=== PATIENT | female | born 1945 | race Caucasian/White ===

== ENCOUNTER 2020-02-17 16:15 | Outpatient (CLI) | payer MEDICARE, SELFPAY ==
--- NOTE | 2020-02-17 | USCV_ITS ---
Deedee Centeno Age: 74 Gender: F : 1945 Exam Date: 02/17/2020 16:40 Ordering Phys: Ray Maria DO Technologist: Dayna White [place] [facility] [place]ication: ATRIAL FIB BP: / HR: 60 Rhythm: Technical Quality: Adequate MEASUREMENTS (Male / Female) Normal Values 2D ECHO LV Diastolic Diameter PLAX 3.8 cm 4.2 - 5.9 / 3.9 - 5.3 cm LV Systolic Diameter PLAX 2.4 cm LV Chamber Size 3.7 cm IVS Diastolic Thickness 0.9 cm 0.6 - 1.0 / 0.6 - 0.9 cm IVS Systolic Thickness 1.4 cm LVPW Diastolic Thickness 1.2 cm 0.6 - 1.0 / 0.6 - 0.9 cm LVPW Systolic Thickness 1.5 cm RV Chamber Size 2.1 cm LVOT Diameter 2.1 cm LV Ejection Fraction 2D Teich 68.5 % LV Ejection Fraction MOD 2C 64.0 % LV Ejection Fraction 2C AL 63.4 % LA Diameter 4.4 cm LA Width 3.4 cm LA Height 5.5 cm RA Width 3.7 cm RA Height 3.9 cm Aorta at Sinotubular Diameter 3.1 cm M-MODE LV Diastolic Diameter MM 5.3 cm 4.2 - 5.9 / 3.9 - 5.3 cm LV Systolic Diameter MM 2.8 cm LV Ejection Fraction MM Teich 78.5 % IVS Diastolic Thickness MM 1.1 cm 0.6 - 1.0 / 0.6 - 0.9 cm IVS Systolic Thickness MM 1.7 cm LVPW Diastolic Thickness MM 0.7 cm 0.6 - 1.0 / 0.6 - 0.9 cm LVPW Systolic Thickness MM 1.7 cm RV Diastolic Diameter MM 1.8 cm Aortic Annulus Diameter 2.5 cm LA Ao Ratio MM 1.8 MV E Point Septal Separation 0.4 cm DOPPLER AV Peak Velocity 135.0 cm/s LVOT Peak Velocity 94.0 cm/s AV Area Cont Eq vti 2.1 cm squared AV Area Cont Eq pk 2.4 cm squared MV Area PHT 5.1 cm squared Mitral E to A Ratio 1.8 MV E' Velocity 14.0 cm/s Mitral E to MV E' Ratio 6.3 Mitral E to LV E' Lateral Ratio 5.6 Mitral E to LV E' Septal Ratio 7.1 TR Peak Velocity 305.6 cm/s TR Peak Gradient 37.4 mmHg TR Mean Velocity 228.7 cm/s TR Mean Gradient 23.9 mmHg TR Velocity Time Integral 86.7 cm TV Peak E Velocity 53.0 cm/s Right Atrial Pressure 3.0 mmHg Pulmonary Artery Systolic Pressu 40.4 mmHg PV Peak Velocity 68.0 cm/s RV Acceleration Time 0.1 s RV Ejection Time 0.3 s RV AcT/ET 0.4 FINDINGS Left Ventricle Normal left ventricular size, systolic function and wall thickness, with no regional wall motion abnormalities. Left ventricular ejection fraction is estimated at 65 %. Normal diastolic function. Right Ventricle Normal right ventricular size and systolic function. Right ventricular systolic pressure 40.4 mmHg. Right Atrium Normal right atrial size. Left Atrium Moderately increased left atrial size. Mitral Valve Structurally normal mitral valve. No mitral valve stenosis. Mild mitral valve regurgitation. Aortic Valve Aortic valve not well visualized. No aortic valve stenosis. No aortic valve regurgitation. Tricuspid Valve Structurally normal tricuspid valve. Trace tricuspid valve regurgitation. Pulmonic Valve Pulmonic valve not well visualized. Pericardium No pericardial effusion. Aorta Normal size aortic root and proximal ascending aorta. CONCLUSIONS 1. Normal left ventricular size, systolic function and wall thickness, with no regional wall motion abnormalities. Left ventricular ejection fraction is estimated at 65 %. Normal diastolic function. 2. Normal right ventricular size and systolic function. 3. Moderately increased left atrial size. 4. Mild mitral valve regurgitation. 5. Pulmonary artery pressure estimated at 40 mm Hg. 6. When compared to previous study dated 03/10/2018, there may not have been any significant change. Mae Latif MD (Electronically Signed) Final Date: 18 February 2020 14:14 S
== END 2020-02-17 16:16 | disposition home or self-care (01) ==
LOC: RAD 16:31
PROVIDERS: PCP Internal Medicine; Visit Provider Internal Medicine
DX: I48.20 Chronic atrial fibrillation, unspecified (principal); I51.7 Cardiomegaly; I34.0 Nonrheumatic mitral (valve) insufficiency
CPT/HCPCS: 93306

== ENCOUNTER 2020-07-10 15:21 | Outpatient (CLI) | payer MEDICARE, SELFPAY ==
--- NOTE | 2020-07-10 15:28 | MM_ITS ---
WS: [id number] BILATERAL SCREENING DIGITAL MAMMOGRAM WITH CAD HISTORY: SCREENING COMPARISON: 09/01/2017 Bilateral CC and MLO views submitted. Computer aided detection analyzed. Breast composition: There are scattered areas of fibroglandular density. No suspicious masses, microc alcifications or architectural distortion. Bilateral breast arterial calcifications and scattered karen ign calcifications. Biopsy clip in the anterior RIGHT breast. MM/[id number] IMPRESSION: BI-RADS: 2-Benign FOLLOW UP: 1 Year Follow-up
--- NOTE | 2020-07-10 16:04 | XR_ITS ---
WS: [id number] SCREENING DEXA SCAN [employer] CLINICAL INFORMATION: POSTMENOPAUSAL ESTROGEN DEFICIENCY COMPARISON: None. FINDINGS: The L1-L4 bone mineral density measures 1.086 g/cm2. This corresponds to a T score score of -0.8 and Z score of 0.1. Left femoral neck bone mineral density measures 1.024 g/cm2. This corresponds to a T score of 0.1 and Z score of 1.2. Right femoral neck bone mineral density measures 1.016 g/cm2. This corresponds to a T score 0.1of and Z score of 1.1. Mean femoral neck bone mineral density measures 1.020 g/cm2. This corresponds to a T score of 0.1 and Z score of 1.1. XR/XR DEXA axial skeleton* [id number] IMPRESSION: Normal bone mineralization. Patient's FRAX calculated 10 year probability for major osteoporotic fracture i s 8.6 % and osteoporotic hip fracture is 1.0%.
== END 2020-07-10 15:22 | disposition home or self-care (01) ==
LOC: RADSHAW 15:26
PROVIDERS: PCP Internal Medicine; Visit Provider Nurse Practitioner Family
DX: Z12.31 Encounter for screening mammogram for malignant neoplasm of breast (principal); Z78.0 Asymptomatic menopausal state
CPT/HCPCS: 77067; 77080

== ENCOUNTER 2020-07-31 05:39 | Observation (INO) | payer MEDICARE, SELFPAY ==
[2020-07-31] VITALS (21 sets, daily range): BP systolic 96–144; BP diastolic 53–107; PULSE 52–91; RESP 14–21; TEMP 35.8–36.6; O2SAT 94–99; BMI 32.1
--- NOTE | 2020-07-31 05:42 | ECG_ITS ---
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 [id number] f
--- NOTE | 2020-07-31 05:42 | XR_ITS ---
WS: [id number] Exam: XR chest 1V portable [id number] Date/Time of Exam: 07/31/2020 6:15 AM Reason For Exam: cp Comparison 01/17/2020. Findings: The lungs are clear and fully expanded. Costophrenic angles are sharp. No infiltrates. Bronchovascula r relief appears normal. Cardiac silhouette is unremarkable. Bony elements are intact. XR/XR chest 1V portable [id number] IMPRESSION: Unremarkable chest radiograph.
[2020-07-31 06:17] LABS: Basophils # 0.1 10^3/uL (0.0-0.1); Basophils % 0.4 %; Eosinophils # 0.4 10^3/uL (0.0-0.8); Eosinophils % 3.3 %; Hematocrit 41.1 % (37.0-47.0); Hemoglobin 13.5 g/dL (11.5-15.3); Lymphocytes # 3.4 10^3/uL (0.8-4.8); Lymphocytes % 27.8 %; Mean Corpuscular HGB Conc 32.8 g/dL (30.0-36.0); Mean Corpuscular Hemoglobin 31.4 pg (28.0-34.0); Mean Corpuscular Volume 95.6 fL (81-99); Mean Platelet Volume 10.5 fL (7.4-10.4); Monocytes # 0.9 10^3/uL (0.2-0.9); Monocytes % 7.1 %; Neutrophils # 7.56 10^3/uL (1.8-7.7); Nucleated Red Blood Cells % 0 %; Platelet Count 338 10^3/cmm (130-400); Red Cell Distribution Width 15.2 % (12.1-15.1); White Blood Count 12.4 10^3/uL (4.0-10.0)
--- NOTE | 2020-07-31 06:21 | W.ED.CHESTPA ---
HPI - Chest Pain General: Chief Complaint: Chest Pain Stated Complaint: CP Time Seen by Provider: 07/31/20 06:08 History of Present Illness: HPI narrative: 74-year-old female presents via EMS complaining of chest pain that woke her up from sleep this morning. She relates the pain was 6 of 10 initially is now decreased to 2/10. She has had this in the past and has seen Dr. Harris. She is currently on apixaban for atrial fibrillation which he previously had an ablation. She states she did had a stress test and an angiogram in the past although the initial review of the records I did not see those may have the look in the old [employer]. This morning she had shortness of breath and headache with this but she denies any nausea or vomiting. She is not diabetic she is not hypertensive. She is a non-smoker. Reviewing the chart in the old [employer] there was a normal angiogram in August [id number]. However at that time left ventriculogram showed 45% ejection fraction with some wall motion abnormalities the comment in the angiogram report that this was inconsistent with her other findings which essentially showed no coronary artery disease. In February of this year she had an echocardiogram which showed a normal ejection fraction. Sestamibi stress test done prior to the angiogram showed areas of reversible ischemia in the distribution of the left circumflex flex artery and showed a normal left ventricular ejection fraction. Patient was found in A. fib with RVR and given IV Cardizem by EMS prior to arrival. On arrival here she is in normal sinus rhythm MD complaint: chest pain and chest discomfort Pertinent past history: prior [place] and other (Atrial fibrillation) Onset (ago): hour(s) Timing of current episode: episodic Prior episodes: Yes Onset: during rest Pain location: substernal Pain radiation: none Pain scale (0-10): 6 Quality: tightness and heaviness Relieving factors: rest Exacerbating factors: nothing Associated symptoms: Deny abdominal pain, diaphoresis, dyspnea, fever(s), leg edema, nausea, palpitations, sense of impending doom, syncope or vomiting Treatment prior to arrival: none Review of Systems Const: Denies: fever(s) or diaphoresis ENMT: Denies: throat pain, ear or mastoid pain, nasal discharge or nasal congestion Card: Denies: palpitations or syncope Resp: Denies: dyspnea, productive cough or non-productive cough GI: Denies: abdominal pain, nausea or vomiting : Denies: flank pain, difficulty voiding, dysuria, urinary frequency or urinary urgency Skin/Breast: Denies: rash or pruritus PFSH ED PFSH: Medical History Anxiety disorder Atrial fibrillation Atypical chest pain The EKG from 11/23/2019 showed sinus rhythm with short GA interval. Some nonspecific T wave changes. Low QRS voltage in the precordial leads. Cardiomyopathy GERD (gastroesophageal reflux disease) Hypertension Radiculopathy Surgical History H/O breast biopsy H/O: hysterectomy History of ear surgery Hx of cholecystectomy Family History Other Stroke Social History Smoking and tobacco status: former smoker Alcohol intake: never Physical Exam Const: COMMON NORMALS: no acute distress GENERAL APPEARANCE: cooperative and comfortable ORIENTATION/CONSCIOUSNESS: Yes awake, Yes oriented to person, Yes oriented to place and Yes oriented to time HENMT: COMMON NORMALS: normocephalic, atraumatic and hearing grossly normal bilaterally HEAD & SCALP: normocephalic and atraumatic Neck/C-Spine: COMMON NORMALS: no JVD Resp: COMMON NORMALS: normal respiratory effort, No retractions, No use of accessory muscles and clear to auscultation bilaterally AUSCULTATION: clear to auscultation bilaterally Cardio: COMMON NORMALS: no JVD, regular rate, regular rhythm and No murmurs present (Cardio) RATE: regular rate RHYTHM: regular rhythm GI: COMMON NORMALS: Soft to palpation and No hepatosplenomegaly present AUSCULTATION: Yes normoactive bowel sounds PALPATION: Yes Soft to palpation, No Tenderness to palpation present (GI), No Guarding due to palpation present (GI) and Yes No hepatosplenomegaly present Extremity: COMMON NORMALS: normal to inspection, capillary refill normal, no clubbing, cyanosis or edema, no calf tenderness and no pedal edema Neuro: SENSORIUM/ORIENTATION: Yes oriented to person, Yes oriented to place and Yes oriented to time Skin: COMMON NORMALS: no rashes or lesions noted GENERAL SKIN EXAM: no rashes or lesions noted Course Vital Signs: Vital signs: Vital Signs Temperature 97.8 F 07/31/20 16:29 Pulse Rate 58 L 07/31/20 16:29 Respiratory Rate 17 07/31/20 16:29 Blood Pressure 144/67 07/31/20 16:29 Pulse Oximetry 94 07/31/20 16:29 MDM - Chest Pain MDM Narrative: Medical decision making narrative: Patient to be admitted. Discussed with hospitalist orders have been written Lab Data: Labs: Lab Results 07/31/20 07/31/20 07/31/20 Range/Units 05:54 05:54 05:54 WBC 12.4 H (4.0-10.0) 10^3/ uL RBC 4.30 (4.1-5.3) 10^6/u L Hgb 13.5 (11.5-15.3) g/dL Hct 41.1 (37.0-47.0) % MCV 95.6 (81-99) fL MCH 31.4 (28.0-34.0) pg MCHC 32.8 (30.0-36.0) g/dL RDW 15.2 H (12.1-15.1) % Plt Count 338 (130-400) 10^3/c mm MPV 10.5 H (7.4-10.4) fL Neut % (Auto) 61.0 % Lymph % (Auto) 27.8 % [place] % (Auto) 7.1 % Eos % (Auto) 3.3 % Baso % (Auto) 0.4 % Neut # (Auto) 7.56 (1.8-7.7) 10^3/u L Lymph # (Auto) 3.4 (0.8-4.8) 10^3/u L [place] # (Auto) 0.9 (0.2-0.9) 10^3/u L Eos # (Auto) 0.4 (0.0-0.8) 10^3/u L Baso # (Auto) 0.1 (0.0-0.1) 10^3/u L Nucleated RBC % (a uto) 0 % Nucleated RBCs # 0.0 /100WBC Sodium 136 (136-145) mmol/L Potassium 3.9 (3.5-5.1) mmol/L Chloride 101 (98-107) mmol/L Carbon Dioxide 24 (22-29) mmol/L Anion Gap 14.9 (5-19) BUN 19 (8-23) mg/dL Creatinine 1.2 H (0.5-0.9) mg/dL GFR Calculation Not Reportable Glucose 100 (65-115) mg/dL Calculated Osmolal ity 284 L (285-295) mOsm/k g Calcium 9.1 (8.5-10.5) mg/dL Magnesium (1.7-2.3) mg/dL Total Bilirubin 0.2 (0.15-1.2) mg/dL AST 16 (0-32) U/L ALT 15 (0-33) U/L Alkaline Phosphata se 115 H (35-105) IU/L Troponin T Baselin e 14 H (0-10) ng/L Troponin T 120 [place] (0-10) ng/L Delta Troponin T (0-10) ABS# NT-Pro-B Natriuret Pep 191 H (0-125) pg/mL Total Protein 6.9 (6.6-8.7) g/dL Albumin 4.0 (3.5-5.2) g/dL Globulin 2.9 (1.3-4.6) g/dL TSH (0.27-4.20) uIU/ mL Urine Color (Yellow) Urine Appearance (CLEAR) Urine pH (5-7) Ur Specific Gravit y (1.005-1.030) Urine Protein (Negative) Urine Glucose (UA) (Normal) Urine Ketones (Negative) Urine Blood (Negative) Urine Nitrate (Negative) Urine Bilirubin (Negative) Urine Urobilinogen (Negative) mg/dL Ur Leukocyte Kathrin ase (Negative) Urine RBC (0-2) /hpf Urine WBC (0-5) /hpf Ur Squamous Epith Cells (0-5) /hpf Amorphous Sediment Urine Bacteria (NONE) /hpf 07/31/20 07/31/20 07/31/20 Range/Units 05:54 06:00 07:45 WBC (4.0-10.0) 10^3/ uL RBC (4.1-5.3) 10^6/u L Hgb (11.5-15.3) g/dL Hct (37.0-47.0) % MCV (81-99) fL MCH (28.0-34.0) pg MCHC (30.0-36.0) g/dL RDW (12.1-15.1) % Plt Count (130-400) 10^3/c mm MPV (7.4-10.4) fL Neut % (Auto) % Lymph % (Auto) % [place] % (Auto) % Eos % (Auto) % Baso % (Auto) % Neut # (Auto) (1.8-7.7) 10^3/u L Lymph # (Auto) (0.8-4.8) 10^3/u L [place] # (Auto) (0.2-0.9) 10^3/u L Eos # (Auto) (0.0-0.8) 10^3/u L Baso # (Auto) (0.0-0.1) 10^3/u L Nucleated RBC % (a uto) % Nucleated RBCs # /100WBC Sodium (136-145) mmol/L Potassium (3.5-5.1) mmol/L Chloride (98-107) mmol/L Carbon Dioxide (22-29) mmol/L Anion Gap (5-19) BUN (8-23) mg/dL Creatinine (0.5-0.9) mg/dL GFR Calculation Glucose (65-115) mg/dL Calculated Osmolal ity (285-295) mOsm/k g Calcium (8.5-10.5) mg/dL Magnesium 2.1 (1.7-2.3) mg/dL Total Bilirubin (0.15-1.2) mg/dL AST (0-32) U/L ALT (0-33) U/L Alkaline Phosphata se (35-105) IU/L Troponin T Baselin e (0-10) ng/L Troponin T 120 [place] 22.68 H (0-10) ng/L Delta Troponin T 8.68 (0-10) ABS# NT-Pro-B Natriuret Pep (0-125) pg/mL Total Protein (6.6-8.7) g/dL Albumin (3.5-5.2) g/dL Globulin (1.3-4.6) g/dL TSH 5.79 H (0.27-4.20) uIU/ mL Urine Color Straw (Yellow) Urine Appearance Clear (CLEAR) Urine pH 8 H (5-7) Ur Specific Gravit y 1.005 (1.005-1.030) Urine Protein Neg (Negative) Urine Glucose (UA) Norm (Normal) Urine Ketones Negative (Negative) Urine Blood 2+ H (Negative) Urine Nitrate Negative (Negative) Urine Bilirubin Neg (Negative) Urine Urobilinogen Norm (Negative) mg/dL Ur Leukocyte Kathrin ase Negative (Negative) Urine RBC 0-4 H (0-2) /hpf Urine WBC 0-4 H (0-5) /hpf Ur Squamous Epith Cells 0-4 H (0-5) /hpf Amorphous Sediment Not Reportable Urine Bacteria Trace (NONE) /hpf Discharge Plan Discharge Patient Disposition: Placed in Observation Admit Provider: Gato Prado Clinical Impression: Atrial fibrillation, Cardiomyopathy, Hypertension, Elevated troponin Discharge Diet: Cardiac Discharge Activity: Increase activity as tolerated Coding Level of Care Code ED Janitor Supervisor for [facility] Fwd Exam Comprehensive
[2020-07-31 06:37] LABS: Troponin(5th) Baseline 14 ng/L (0-10)
[2020-07-31 06:47] LABS: Alanine Aminotransferase 15 U/L (0-33); Alkaline Phosphatase 115 IU/L (35-105); Anion Gap 14.9 (5-19); Aspartate Amino Transferase 16 U/L (0-32); Blood Urea Nitrogen 19 mg/dL (8-23); Calcium 9.1 mg/dL (8.5-10.5); Carbon Dioxide 24 mmol/L (22-29); Chloride 101 mmol/L (98-107); Globulin 2.9 g/dL (1.3-4.6); Glucose 100 mg/dL (65-115); NT Pro B Type Natriuretic Pept 191 pg/mL (0-125); Osmolality Calculated 284 mOsm/kg (285-295); Potassium 3.9 mmol/L (3.5-5.1); Sodium 136 mmol/L (136-145); Total Bilirubin 0.2 mg/dL (0.15-1.2); Total Protein 6.9 g/dL (6.6-8.7)
[2020-07-31 07:01] LABS: Blood Urine 2+ (Negative); Glucose Urine UA Norm (Normal); Ketones Urine Negative (Negative); Protein Urine Neg (Negative); Specific Gravity, Urine 1.005 (1.005-1.030); Urine Appearance Clear (CLEAR); Urine Color Straw (Yellow); pH Urine 8 (5-7)
[2020-07-31 07:02] LABS: Add Urine Microscopic? YES; Bilirubin Urine Neg (Negative); Leukocyte Esterase Urine Negative (Negative); Nitrate Urine Negative (Negative); Urobilinogen Urine Norm (Negative)
[2020-07-31 07:03] LABS: Bacteria Urine TRACE /hpf; RBC Urine 0-4 /hpf (0-2); Squamous Epithelial Cell Urine 0-4 /hpf (0-5); WBC Urine 0-4 /hpf (0-5)
--- NOTE | 2020-07-31 07:08 | PC.NURSE ---
Report received from Deshawn Cabrera RN. Introduced self to pt and son. Dr Hendricks in room at time. Assisted pt to use BSC. Pt placed back in bed, call light in reach, no needs at this time. Pt states her pain at this time is a very tiny bit .
--- NOTE | 2020-07-31 07:42 | ECG_ITS ---
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 [id number] f
--- NOTE | 2020-07-31 07:47 | PC.NURSE ---
2hr EKG done and 2hr troponin drawn at bedside. Pt denies needs at this time, call light in reach. Pt son at bedside.
[2020-07-31 08:14] LABS: Troponin 5 2HR 22.68 ng/L (0-10); Troponin 5 2HR Delta 8.68 ABS# (0-10)
--- NOTE | 2020-07-31 08:16 | PC.NURSE ---
Rounded on pt. Pt denies pain at this time. Pt and son updated on wait for lab results, denies needs. Call light in reach.
[2020-07-31] MEDS: enoxaparin 100 mg/mL Syringe 90 MG SUBCUT (09:36)
--- NOTE | 2020-07-31 10:09 | PM.HP ---
Providers/Chief Complaint Primary Care Provider: Ray Maria DO Chief Complaint: CP History of Present Illness Deedee Centeno is a 74 year old female who presents by EMS. She reports she had chest pain starting at 4 AM, waking her up from sleep. She reports it was a horrible ache in the chest, with some radiation to her jaw. No nausea, vomiting, or shortness of breath. She reports it is gone now. She reports a history of ablation, about a year ago that did not work. She states afterwards she had to go back on propafenone. After restarting the medicine she has not had any events. When ambulance services picked her up today, she was in atrial fibrillation with rapid ventricular rate at a heart rate of around 150. She received Cardizem. She is in sinus rhythm in the emergency department. She denies any history of Covid, or exposure to Covid. She has no pain when she takes a deep breath. Review of Systems General: Reports: 10 or more systems reviewed and unremarkable except in HPI and below Const: Denies: fever(s) Eyes: Denies: change in vision ENMT: Denies: throat pain Card: Reports: chest pain and palpitations Resp: Denies: dyspnea GI: Denies: abdominal pain : Denies: flank pain Musc: Denies: neck pain Skin/Breast: Denies: rash Neuro: Denies: headache(s) Psych: Denies: anxiety Endo: Denies: polyuria Rodolfo/Lymph: Denies: easy bruising All/Imm: Denies: urticaria Medications/Allergies Home Medications Medication Instructions Recorded Confirmed Last Taken Type albuterol sulfate 90 mcg/actuation 2 puff INHALATION Q6H PRN 11/23/19 07/31/20 Unknown History aerosol inhaler furosemide 40 mg tablet 40 mg PO DAILY tab 03/22/20 07/31/20 07/30/20 History potassium chloride 10 mEq 10 meq PO DAILY tab 03/22/20 07/31/20 07/30/20 History tablet,extended release tizanidine 4 mg tablet 6 mg PO TID PRN tab 03/22/20 07/31/20 Unknown History propafenone 150 mg tablet 300 mg PO Q8H #180 tab 05/17/20 07/31/20 07/30/20 Rx aspirin 325 mg PO DAILY 07/31/20 07/31/2020 History Allergies Allergy/AdvReac Type Severity Reaction Status Date / Time iodine Allergy Unknown unknown Verified 03/22/20 10:10 morphine Allergy Unknown unknown Verified 03/22/20 10:10 rosuvastatin [From Crestor] Allergy Unknown Unknown Verified 03/22/20 10:10 shrimp Allergy Unknown unknown Verified 03/22/20 10:10 PFSH Acute PFSH: Medical History Anxiety disorder Atrial fibrillation Atypical chest pain The EKG from 11/23/2019 showed sinus rhythm with short IN interval. Some nonspecific T wave changes. Low QRS voltage in the precordial leads. Cardiomyopathy GERD (gastroesophageal reflux disease) Hypertension Radiculopathy Surgical History H/O breast biopsy H/O: hysterectomy History of ear surgery Hx of cholecystectomy Family History Other Stroke Social History Smoking and tobacco status: former smoker Alcohol intake: never Vitals/I&O/Wt Last Vital Signs Temp 97.8 F 07/31/20 05:43 Pulse 55 L 07/31/20 09:34 Resp 16 07/31/20 09:34 BP 102/53 07/31/20 09:34 Pulse Ox 95 07/31/20 09:34 Weight last 48 hrs Weight 92.986 kg Data : 07/31/20 05:54 07/31/20 05:54 Other data: Last echocardiogram February 2020 demonstrates an EF of 65%, mild MR Magnesium and TSH have been ordered Urinalysis negative BNP 190 Troponin XIV with repeat of 22 at 120 minutes EKG demonstrated sinus bradycardia, normal axis, no acute changes. Chest x-ray no infiltrate Angiogram August demonstrated 30% eccentric stenosis LAD otherwise not any significant concerns. A&P Assessment and plan (1) Atrial fibrillation: Atrial fibrillation with rapid ventricular rate when picked up by EMS. She received Cardizem and converted to sinus rhythm. She currently remains in sinus rhythm, bradycardic. She is on propafenone 300 mg 3 times daily We will start anticoagulation. She had stopped this secondary to cost. Will discuss with discharge planning what insurance may cover better. Cardiology consult regarding arrhythmia, options in this patient Status: Acute Qualifiers: Atrial fibrillation type: other persistent Qualified Code(s): I48.19 - Other persistent atrial fibrillation (2) Atypical chest pain: Appears to be secondary to atrial fibrillation with rapid ventricular rate. Angiogram 2016 demonstrated only 30% lesion LAD and the rest of the vessels minor disease. Continue aspirin She has reported allergy to statins. Status: Acute (3) Elevated troponin: Secondary to atrial fibrillation with rapid ventricular rate Status: Acute Additional A&P Information Full code Lovenox will suffice for DVT prophylaxis Attestations Medical Necessity Statement*: Will need less than 2 midnight stay for evaluation and treatment of atrial fibrillation with rapid ventricular rate. 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
[2020-07-31 10:50] LABS: Magnesium 2.1 mg/dL (1.7-2.3); Thyroid Stimulating Hormone 5.79 uIU/mL (0.27-4.20)
--- NOTE | 2020-07-31 10:59 | PM.CONSULT ---
Providers/Reason For Consult Consulting Physican/Specialty*: Dr. Latif, Cardiology Reason for Consult*: Paroxysmal atrial fibrillation with RVR, elevated troponin Requesting Physcian: Dr. Prado Primary Care Provider: Ray Maria DO History of Present Illness History of Present Illness Deedee Centeno is a 74 year old female was in her usual state of health until around 4 this morning. She woke up with chest discomfort and measured her blood pressure. Her blood pressure was high and her heart rate was irregular so she called her son who called the ambulance and she presented to the hospital. On her way to the ambulance EKG was done which showed what looks like possible atrial flutter with rapid ventricular response with 2 is to 1 conduction. She was given Cardizem 20 mg IV with religious of normal sinus rhythm. On arrival to the ER her EKG has shown sinus bradycardia, low QRS voltage in precordial leads with nonspecific T wave abnormality. Her symptoms of chest discomfort and palpitations have since resolved. She denies having any fever chills URI or UTI-like symptoms prior to this episode. She stopped taking her Eliquis because of the wharton around 29 June. Review of Systems Const: Denies: fever(s), chills, change in appetite, change in weight, fatigue or malaise Eyes: Denies: change in vision or eye discharge ENMT: Denies: throat pain, swelling of lips/tongue, oral sores, bleeding gums, nasal congestion, epistaxis or post nasal drip Card: Denies: chest pain, palpitations, irregular heart rhythm, edema, lightheadedness, syncope, dyspnea on exertion, orthopnea or leg pain with exertion Resp: Denies: dyspnea, productive cough, wheezing or hemoptysis GI: Denies: abdominal pain, nausea, vomiting, hematemesis, heartburn, diarrhea, constipation, change in bowel habits, hematochezia or melena : Denies: difficulty voiding, dysuria, oliguria, hematuria or sexual dysfunction Musc: Denies: back pain, extremity swelling, joint pain or muscle weakness Skin/Breast: Denies: rash, erythema, new lesions or change in hair Neuro: Denies: numbness in extremities, weakness in extremities, lack of coordination, difficulty walking, dizziness, vertigo or confusion Psych: Denies: anxiety, depression, irritability, suicidal ideation or homicidal ideation Endo: Denies: tired all the time, cold intolerance or heat intolerance Rodolfo/Lymph: Denies: easy bruising, easy bleeding, petechiae or purpura All/Imm: Denies: throat swelling, tongue swelling or acute wheezing Meds/Allergies Home Medications and Allergies Home Medications Medication Instructions Recorded Confirmed Last Taken Type albuterol sulfate 90 mcg/actuation 2 puff INHALATION Q6H PRN 11/23/19 07/31/20 Unknown History aerosol inhaler furosemide 40 mg tablet 40 mg PO DAILY tab 03/22/20 07/31/20 07/30/20 History potassium chloride 10 mEq 10 meq PO DAILY tab 03/22/20 07/31/20 07/30/20 History tablet,extended release tizanidine 4 mg tablet 6 mg PO TID PRN tab 03/22/20 07/31/20 Unknown History propafenone 150 mg tablet 300 mg PO Q8H #180 tab 05/17/20 07/31/20 07/30/20 Rx aspirin 325 mg PO DAILY 07/31/20 07/31/20 07/30/20 History Allergies Allergy/AdvReac Type Severity Reaction Status Date / Time iodine Allergy Unknown unknown Verified 03/22/20 10:10 morphine Allergy Unknown unknown Verified 03/22/20 10:10 rosuvastatin [From Crestor] Allergy Unknown Unknown Verified 03/22/20 10:10 shrimp Allergy Unknown unknown Verified 03/22/20 10:10 PFSH Acute PFSH: Medical History Anxiety disorder Atrial fibrillation Atypical chest pain The EKG from 11/23/2019 showed sinus rhythm with short MI interval. Some nonspecific T wave changes. Low QRS voltage in the precordial leads. Cardiomyopathy GERD (gastroesophageal reflux disease) Hypertension Radiculopathy Surgical History H/O breast biopsy H/O: hysterectomy History of ear surgery Hx of cholecystectomy Family History Other Stroke Social History Smoking and tobacco status: former smoker Alcohol intake: never Vitals/I&O/Wt Last Vital Signs Temp 97.8 F 07/31/20 05:43 Pulse 57 L 07/31/20 10:55 Resp 17 07/31/20 10:55 BP 113/68 07/31/20 10:55 Pulse Ox 96 07/31/20 10:55 Weight last 48 hrs Weight 205 lb Physical Exam Const: COMMON NORMALS: no acute distress, patient oriented x3 and alert GENERAL APPEARANCE: cooperative, comfortable, well kempt and well hydrated HENMT: COMMON NORMALS: normocephalic, atraumatic, hearing grossly normal bilaterally and Normal external nose present HEAD & SCALP: normocephalic and atraumatic NOSE: Normal external nose present and No nasal discharge present MOUTH: lip normal and tongue normal; no drooling and no malodorous breath TEETH & GINGIVA: no caries Eye: COMMON NORMALS: Equal, round and reactive pupils present, EOMs intact bilaterally, conjunctivae normal and no scleral icterus GENERAL EYE: appearance normal, both eyes and all related structures ALIGNMENT: Yes alignment normal PERIORBITAL: periorbital findings normal EYELID: eyelids normal CONJUNCTIVA: Yes conjunctivae normal SCLERA: sclerae normal PUPIL: Yes Equal, round and reactive pupils present Neck/C-Spine: COMMON NORMALS: no lymphadenopathy, supple and no JVD GENERAL: Yes normal visual inspection, Yes trachea midline and No Mass present (neck) CAROTIDS: Yes normal carotid upstroke CERVICAL SPINE: Yes cervical ROM normal Lymph: LYMPHATIC: no lymphadenopathy noted Chest: COMMONS NORMALS: normal inspection of the chest and normal palpation of entire chest wall CHEST: Yes Symmetrical chest wall rise, No mass, No tenderness, No Surgical scars present (Chest) and No rash BREAST/AXILLA INSPECTION: Yes normal inspection of the axillae Resp: COMMON NORMALS: clear to auscultation bilaterally AUSCULTATION: clear to auscultation bilaterally, no crackles, no rales, no rhonchi, no wheezes and vesicular breath sounds Cardio: COMMON NORMALS: no JVD, regular rate, regular rhythm, S1 normal heart sound present, S2 normal heart sound present and Peripheral pulses 2+ throughout PALPATION: normal PMI RATE: regular rate RHYTHM: regular rhythm HEART SOUNDS: S1 normal heart sound present, S2 normal heart sound present, no gallops and no murmurs BRUITS: no carotid bruits PERIPHERAL PULSES: Peripheral pulses 2+ throughout, radial pulses present, posterior tibial pulses present and dorsalis pedis present GI: COMMON NORMALS: Soft to palpation AUSCULTATION: Yes normoactive bowel sounds PALPATION: Yes Soft to palpation, No Tenderness to palpation present (GI), No Guarding due to palpation present (GI), No Rigid due to palpation, No Pulsatile mass present and No Ascites present Extremity: GENERAL: No calf tenderness, No clubbing, No cyanosis, Yes edema and No pallor Neuro: COMMON NORMALS: patient oriented x3, CN's II-XII intact bilaterally and no focal motor deficits SENSORIUM/ORIENTATION: Yes alert Psych: COMMON NORMALS: Normal thought process present and speech normal APPEARANCE: Yes well kempt SPEECH: Yes normal speech MOOD & AFFECT: Yes euthymic mood THOUGHT PROCESS: Normal thought process present THOUGHT CONTENT: Yes Normal thought content present Skin: HAIR: normal NAILS: normal and no clubbing A&P Assessment and plan (1) Atrial fibrillation: Paroxysmal atrial fibrillation/flutter with RVR -S/p atrial fibrillation ablation in March [address] Cross at [facility]. It seems like after that she had stopped taking her propafenone and Eliquis which has since been restarted. The recurrence of atrial fibrillation was in June and this is her first episode requiring ER visit since then. -The option of changing propafenone to a different antiarrhythmic versus adding metoprolol tartrate 25 mg as needed for HR >100 bpm was discussed. -Patient would like to continue propafenone 300 mg 3 times a day (maximum dose). Restart DOAC. -We may have to wharton other DOAC's with case management. -Follow up with Dr Harris in 2-3 weeks in office. Status: Acute Qualifiers: Atrial fibrillation type: other persistent Qualified Code(s): I48.19 - Other persistent atrial fibrillation (2) Atypical chest pain: likely in setting of atrial flutter with RVR. Status: Acute (3) Elevated troponin: Baseline troponin T of 814 which increased to 23 and 6 hr troponin T of 21. -In setting of atrial flutter with rapid ventricle response Status: Acute (4) Hypertension: Status: Acute Qualifiers: Hypertension type: essential hypertension Qualified Code(s): I10 - Essential (primary) hypertension Coding Level of Care Code Acute Onboarding Specialist for [facility] Fwd Exam Comprehensive Diagnoses Atrial fibrillation I48.19 Atrial fibrillation type: other persistent Atypical chest pain R07.89 Elevated troponin R77.8 Hypertension I10 Hypertension type: essential hypertension
[2020-07-31] MEDS: propafenone 150 mg Tablet PO (11:20)
[2020-07-31] MEDS: aspirin 325 mg Tablet PO (11:20)
--- NOTE | 2020-07-31 11:42 | ECG_ITS ---
[facility] Test Date: 2020-07-31 Pat Name: Deedee Centeno Department: Room: 102 Gender: Female Imaging Technician: : 1945 Requested By: William Kwok Order Number: [id number] Cheryl MD: Maria L Harris M.D. Measurements Intervals [place] Rate: 53 P: 54 [place]: 157 QRS: 7 QRSD: 88 T: 48 QT: 446 QTc: 420 Interpretive Statements SINUS BRADYCARDIA LOW QRS VOLTAGE IN PRECORDIAL LEADS [QRS DEFLECTION < 1.0 mV IN CHEST LEADS] NONSPECIFIC T-WAVE ABNORMALITY Compared to ECG 07/31/2020 07:48:49 T-wave abnormality now present Electronically Signed On 07-31-2020 18:35:15 INSPECTOR ADV[employer]ED COMPOSITE by Maria L Harris M.D. [id number]
[2020-07-31] MEDS: lanolin oint 7 gm 1 APPLIC TOPICAL (11:52)
[2020-07-31 12:26] LABS: Troponin 5 6HR 20.82 ng/L (0-10); Troponin 5 6HR Delta 6.82 ng/L (0-12)
--- NOTE | 2020-07-31 15:56 | P.DS_ITS ---
Discharge Providers Date of Admission: 07/31/20 09:30 Date of Discharge: July 31, 2020 Attending Provider at Admission: Gato Prado MD Attending Provider at Discharge: Gato Prado MD Primary Care Provider: Ray Maria DO Diagnoses at Discharge Discharge Diagnosis (1) Atrial fibrillation: Status: Acute Qualifiers: Atrial fibrillation type: other persistent Qualified Code(s): I48.19 - Other persistent atrial fibrillation (2) Atypical chest pain: Status: Acute Permanent problem details: The EKG from 11/23/2019 showed sinus rhythm with short MO interval. Some nonspecific T wave changes. Low QRS voltage in the precordial leads. (3) Elevated troponin: Status: Acute (4) Hypertension: Status: Acute Qualifiers: Hypertension type: essential hypertension Qualified Code(s): I10 - Essential (primary) hypertension Reason for Visit Reason for Visit: CP Hospital Course Hospital Course Deedee is a 74-year-old white female who presented through the emergency department with complaints of chest pain and palpitations occurring in the morning. EMS noted a heart rate of 150s, atrial fibrillation/flutter. They gave her 20 mg of Cardizem IV. She converted to sinus rhythm and remained in mild sinus bradycardia throughout her hospital stay. She denied any chest pain when I evaluated her in the emergency department. She has a long history of atrial fibrillation, not responding to ablation. She is currently maintained on propafenone. I placed her in the hospital under an observation status. Cardiology visited the patient and she did not want any current changes to her regimen of propafenone. Patient will follow up with her primary care precision instrument and tool maker Dr. Harris. Metoprolol 25 mg was added to take on a as needed basis should patient go into atrial fibrillation and have a heart rate of over 110. She had also recently stopped her Eliquis. We attempted to see what was better financially but all of the medication had significant cost through her insurance. It was therefore filled through our 340 B plan with hopes that it could be continued through the same program. Mild troponin elevation, was secondary to her tachycardia. Third troponin was already decreasing. Physical Exam Narrative: EXAM NARRATIVE: See exam from earlier today Discharge Data Data Completed and Pending: Completed Studies During Hospitalization Category Date Time Status XR chest 1V amaury ble [id number] Stat Exams 07/31/20 05:42 Completed Pending at discharge Category Date Time Status Complete Blood Co unt w/Auto AM LABS Lab 08/01/20 04:00 Ordered Comprehensive Met abolic Panel AM LA BS Lab 08/01/20 04:00 Ordered Labs from last 24 hours 07/31/20 07/31/20 07/31/20 11:55 07:45 06:00 WBC RBC Hgb Hct MCV MCH MCHC RDW Plt Count MPV Neut % (Auto) Lymph % (Auto) Maverick % (Auto) Eos % (Auto) Baso % (Auto) Neut # (Auto) Lymph # (Auto) Maverick # (Auto) Eos # (Auto) Baso # (Auto) Nucleated RBC % (a uto) Nucleated RBCs # Sodium Potassium Chloride Carbon Dioxide Anion Gap BUN Creatinine GFR Calculation Glucose Calculated Osmolal ity Calcium Magnesium Total Bilirubin AST ALT Alkaline Phosphata se Troponin T Baselin e Troponin T 120 Min [place] 22.68 H Delta Troponin T 8.68 Troponin T Hi Sens 6Hr 20.82 H Troponin T Hi Sens 6Hr Delta 6.82 NT-Pro-B Natriuret Pep Total Protein Albumin Globulin TSH Urine Color Straw Urine Appearance Clear Urine pH 8 H Ur Specific Gravit y 1.005 Urine Protein Neg Urine Glucose (UA) Norm Urine Ketones Negative Urine Blood 2+ H Urine Nitrate Negative Urine Bilirubin Neg Urine Urobilinogen Norm Ur Leukocyte Kathrin ase Negative Urine RBC 0-4 H Urine WBC 0-4 H Ur Squamous Epith Cells 0-4 H Amorphous Sediment Not Reportable Urine Bacteria Trace 07/31/20 07/31/20 07/31/20 05:54 05:54 05:54 WBC RBC Hgb Hct MCV MCH MCHC RDW Plt Count MPV Neut % (Auto) Lymph % (Auto) Maverick % (Auto) Eos % (Auto) Baso % (Auto) Neut # (Auto) Lymph # (Auto) Maverick # (Auto) Eos # (Auto) Baso # (Auto) Nucleated RBC % (a uto) Nucleated RBCs # Sodium 136 Potassium 3.9 Chloride 101 Carbon Dioxide 24 Anion Gap 14.9 BUN 19 Creatinine 1.2 H GFR Calculation Not Reportable Glucose 100 Calculated Osmolal ity 284 L Calcium 9.1 Magnesium 2.1 Total Bilirubin 0.2 AST 16 ALT 15 Alkaline Phosphata se 115 H Troponin T Baselin e 14 H Troponin T 120 Min [place] Delta Troponin T Troponin T Hi Sens 6Hr Troponin T Hi Sens 6Hr Delta NT-Pro-B Natriuret Pep 191 H Total Protein 6.9 Albumin 4.0 Globulin 2.9 TSH 5.79 H Urine Color Urine Appearance Urine pH Ur Specific Gravit y Urine Protein Urine Glucose (UA) Urine Ketones Urine Blood Urine Nitrate Urine Bilirubin Urine Urobilinogen Ur Leukocyte Kathrin ase Urine RBC Urine WBC Ur Squamous Epith Cells Amorphous Sediment Urine Bacteria 07/31/20 05:54 WBC 12.4 H RBC 4.30 Hgb 13.5 Hct 41.1 MCV 95.6 MCH 31.4 MCHC 32.8 RDW 15.2 H Plt Count 338 MPV 10.5 H Neut % (Auto) 61.0 Lymph % (Auto) 27.8 Maverick % (Auto) 7.1 Eos % (Auto) 3.3 Baso % (Auto) 0.4 Neut # (Auto) 7.56 Lymph # (Auto) 3.4 Maverick # (Auto) 0.9 Eos # (Auto) 0.4 Baso # (Auto) 0.1 Nucleated RBC % (a uto) 0 Nucleated RBCs # 0.0 Sodium Potassium Chloride Carbon Dioxide Anion Gap BUN Creatinine GFR Calculation Glucose Calculated Osmolal ity Calcium Magnesium Total Bilirubin AST ALT Alkaline Phosphata se Troponin T Baselin e Troponin T 120 Min [place] Delta Troponin T Troponin T Hi Sens 6Hr Troponin T Hi Sens 6Hr Delta NT-Pro-B Natriuret Pep Total Protein Albumin Globulin TSH Urine Color Urine Appearance Urine pH Ur Specific Gravit y Urine Protein Urine Glucose (UA) Urine Ketones Urine Blood Urine Nitrate Urine Bilirubin Urine Urobilinogen Ur Leukocyte Kathrin ase Urine RBC Urine WBC Ur Squamous Epith Cells Amorphous Sediment Urine Bacteria Vitals: Last Vital Signs Temp 96.4 F L 07/31/20 15:06 Pulse 56 L 07/31/20 15:06 Resp 17 07/31/20 15:06 BP 123/77 07/31/20 15:06 Pulse Ox 96 07/31/20 15:06 Discharge Plan Discharge Patient Disposition: Home Condition: Stable Prescriptions: New metoprolol tartrate 25 mg tablet 25 mg PO PRN Qty: 30 RF: 0 Eliquis 5 mg tablet 5 mg PO BID Qty: 60 RF: 0 Continued albuterol sulfate [Ventolin HFA] 90 mcg/actuation HFA aerosol inhaler 2 puff INHALATION Q6H PRN (Reason: Shortness Of Breath) RF: 0 potassium chloride 10 mEq tablet extended release 10 meq PO DAILY RF: 0 furosemide 40 mg tablet 40 mg PO DAILY RF: 0 tizanidine 4 mg tablet 6 mg PO TID PRN (Reason: muscle spasticity) RF: 0 propafenone 150 mg tablet 300 mg PO Q8H Qty: 180 RF: 4 Discontinued aspirin 325 mg Tablet 325 mg PO DAILY RF: 0 Discharge Orders: Discharge Order (Routine); Ordered 07/31/20 Ordered By: Gato Prado Referrals: Maria L Harris MD [Physician] - 7-10 days Ray Maria DO [Primary Care Provider] - 4-7 days (Marcelo Stauffer will be calling to set up a hospital followup with Dr. Maria to be seen in 4 to 7 days. If you don't hear from them by tomorrow afternoon, please give them a call) Discharge Diet: Cardiac Discharge Activity: Increase activity as tolerated Patient Instructions: Metoprolol (By mouth), Apixaban (By mouth) Activity Restrictions/Additional Instructions: Take all medicine as prescribed Metoprolol 25 mg p.o. as needed atrial fibrillation with heart rate greater than 110. Do not take less than 12 hours apart Discharge Attestations Time Spent in Discharge Care*: greater than 30 min Quality Metrics Clinical Quality Measures During this hospital stay, did patient experience: None Coding Level of Care Code Acute Car Conditioner for Josefina Campbell Diagnoses Atrial fibrillation I48.19 Atrial fibrillation type: other persistent Atypical chest pain R07.89 Elevated troponin R77.8 Hypertension I10 Hypertension type: essential hypertension
== END 2020-07-31 17:30 | disposition home or self-care (01) ==
LOC: ER 09:22 → CSU 12:53
PROVIDERS: Emergency Medicine; Admitting Provider Internal Medicine; Emergency Provider Family Medicine; PCP Internal Medicine; Visit Provider Internal Medicine
DX: R07.89 Other chest pain (principal); I48.19 Other persistent atrial fibrillation; R77.8 Other specified abnormalities of plasma proteins; I10 Essential (primary) hypertension; Z79.82 Long term (current) use of aspirin; F41.9 Anxiety disorder, unspecified; Z82.3 Family history of stroke; Z87.891 Personal history of nicotine dependence; R79.89 Other specified abnormal findings of blood chemistry
CPT/HCPCS: 12345; 36415; 71045; 80053; 81001; 83735; 83880; 84443; 84484; 85025; 93005; 96372; 99283; 99285; G0378; J1650

== ENCOUNTER → 2021-06-27 09:35 | Outpatient (BNVA) | payer MEDICARE, SELFPAY | PROVIDERS: PCP Internal Medicine; Visit Provider Internal Medicine Pulmonary Disease | DX: Z20.822 Contact with and (suspected) exposure to COVID-19 (principal); R06.00 Dyspnea, unspecified | CPT/HCPCS: 87635 ==

== ENCOUNTER 2021-07-03 13:31 | Outpatient (CLI) | payer MEDICARE, SELFPAY ==
--- NOTE | 2021-07-03 13:56 | PFTS_ITS ---
Date of Study:07/03/21 Date of Dictation: MECHANICS: Forced vital capacity (FVC) is reduced. Forced expiratory volume in one second (FEV1) is reduced. FEV1/FVC is normal. FLOW VOLUME LOOP: Narrow with scooping. LUNG VOLUMES: Total lung capacity (TLC) is normal. Residual volume (RV) is normal. DIFFUSING CAPACITY FOR CARBON MONOXIDE: Moderately reduced. INTERPRETATION: The pulmonary function tests are consistent with nonspecific ventilatory limitation. The postbronchodilator spirometry is consistent with moderately severe restriction however the lung volumes are normal. 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 Lung volumes are normal. Gas exchange (DLCO) is moderately reduced. MTDD
== END 2021-07-03 13:32 | disposition home or self-care (01) ==
PROVIDERS: PCP Internal Medicine; Visit Provider Internal Medicine Pulmonary Disease
DX: R06.00 Dyspnea, unspecified (principal)
CPT/HCPCS: 94060; 94726; 94729; J7611

== ENCOUNTER 2021-07-12 12:53 | Outpatient (CLI) | payer MEDICARE, SELFPAY ==
--- NOTE | 2021-07-12 13:02 | MM_ITS ---
WS: [id number] BILATERAL SCREENING DIGITAL MAMMOGRAM WITH CAD HISTORY: SCREENING COMPARISON: 07/10/2020 and 09/01/2017 Bilateral CC and MLO views submitted. Computer aided detection analyzed. Breast composition: There are scattered areas of fibroglandular density. No suspicious masses, microc alcifications or architectural distortion. Bilateral vascular and scattered punctate calcifications w ithin each breast. MM/[place] [id number] IMPRESSION: BI-RADS: 2-Benign FOLLOW UP: 1 Year Follow-up
== END 2021-07-12 12:54 | disposition home or self-care (01) ==
LOC: RADSHAW 12:58
PROVIDERS: PCP Internal Medicine; Visit Provider Physician Assistant
DX: Z12.31 Encounter for screening mammogram for malignant neoplasm of breast (principal)
CPT/HCPCS: 77067

== ENCOUNTER 2021-08-13 17:56 | Emergency (ER) | payer MEDICARE, SELFPAY ==
--- NOTE | 2021-08-13 18:11 | XRR_ITS ---
PROCEDURE INFORMATION: Exam: XR Chest Exam date and time: 08/13/2021 6:11 PM Age: 75 years old Clinical indication: Shortness of breath; Additional info: SOB TECHNIQUE: Imaging protocol: XR of the chest. Views: 1 view. COMPARISON: No relevant prior studies available. FINDINGS: Lungs: Unremarkable. No consolidation. Pleural spaces: Unremarkable. No pleural effusion. No pneumothorax. Heart/Mediastinum: Unremarkable. No cardiomegaly. Bones/joints: Unremarkable. XR/XR chest 1V portable [id number] IMPRESSION: No acute findings. Radiation Dose CTDIVOL = (mGy): DLP = (mGy-cm)
[2021-08-13 18:15] VITALS: BP 155/93; PULSE 63; RESP 18; TEMP 37.8; O2SAT 97; BMI 32.5
[2021-08-13 20:30] VITALS: RESP 22
[2021-08-13] MEDS: ondansetron 2 mg/ML SDV 2 mL 4 MG IVP (20:37)
[2021-08-13] MEDS: acetaminophen 500 mg Tablet 1000 MG PO (20:37)
--- NOTE | 2021-08-13 20:38 | ED_ITS ---
HPI - COVID General: Chief Complaint: COVID symptoms Stated Complaint: COVD+ throwing up blood Time Seen by Provider: 08/13/21 20:15 Source: patient Mode of arrival: ambulatory Limitations: no limitations Triage information: Has fever, cough or shortness of breath . Exposure to COVID + person last 14 days History of Present Illness: HPI Narrative: 75-year-old female who states she tested positive for Covid on Friday. States she just not felt very well since then she has had a cough felt nauseous vomiting is felt dehydrated. States she is also had a little blood that she had spit up denies really coughing up any blood she had some minimal shortness of breath patient is 97% here on room air she denies any worst improving factors she states she mainly just feels weak and not well. She has had low-grade fevers. COVID 19 common symptoms: positive fever(s), chills, non-productive cough, body aches, nausea and vomiting; negative headache(s) or throat pain COVID 19 other sytmptoms: negative chest pain COVID Results: No Data to Display Review of Systems Const: Reports: fever(s), chills and body aches Eyes: Denies: blurry vision or eye discomfort ENMT: Denies: throat pain or dental pain Card: Denies: chest pain Resp: Reports: non-productive cough and hemoptysis GI: Reports: nausea and vomiting : Denies: dysuria Musc: Denies: neck pain or back pain Skin/Breast: Denies: rash Neuro: Denies: headache(s) Psych: Denies: depression Rodolfo/Lymph: Denies: easy bruising All/Imm: Denies: urticaria Physical Exam Const: COMMON NORMALS: no acute distress, patient oriented x3 and healthy appearing HENMT: COMMON NORMALS: normocephalic and atraumatic HEAD & SCALP: normocephalic and atraumatic Eye: COMMON NORMALS: Equal, round and reactive pupils present and EOMs intact bilaterally PUPIL: Yes Equal, round and reactive pupils present Neck/C-Spine: COMMON NORMALS: full ROM and supple Chest: COMMONS NORMALS: normal inspection of the chest and normal palpation of entire chest wall Resp: COMMON NORMALS: normal respiratory effort, No retractions, No use of accessory muscles and clear to auscultation bilaterally AUSCULTATION: clear to auscultation bilaterally Cardio: COMMON NORMALS: regular rate, regular rhythm and No murmurs present (Cardio) RATE: regular rate RHYTHM: regular rhythm GI: COMMON NORMALS: Normal to inspection, nondistended, normoactive bowel s ounds present, Soft to palpation, non-tender and no masses PALPATION: Yes Soft to palpation Extremity: COMMON NORMALS: normal to inspection and full ROM Neuro: COMMON NORMALS: patient oriented x3, moves all extremities and no focal motor deficits Psych: COMMON NORMALS: mental status grossly normal, Normal thought process present and cooperative THOUGHT PROCESS: Normal thought process present Skin: COMMON NORMALS: no rashes or lesions noted and no wounds GENERAL SKIN EXAM: no rashes or lesions noted Course Vital Signs: Vital signs: Vital Signs Temperature 100.1 F H 08/13/21 18:15 Pulse Rate 63 08/13/21 22:04 Respiratory Rate 19 H 08/13/21 22:04 Blood Pressure 155/93 08/13/21 18:15 Pulse Oximetry 93 08/13/21 22:04 MDM - COVID MDM Narrative: Medical decision making narrative: Patient presents here with body aches fevers and vomiting likely from Covid. She is well-appearing here D- dimer is negative x-ray and blood work are all normal she feels much improved after IV fluids and Zofran patient states her positive was done at [facility] she believes it was a Friday and that her symptoms started this Friday informed her she is in the timeframe for monoclonal antibody infusion she has to get the results of that test we will try to set up an infusion. She is return to ER if she has any worsening symptoms will prescribe her Zofran she understands and agrees to the plan. Lab Data: Labs: Lab Results 08/13/21 08/13/21 08/13/21 18:11 20:49 21:04 WBC 5.0 10^3/uL 10^3/ uL (4.0-10.0) RBC 4.49 10^6/uL 10^6 /uL (4.1-5.3) Hgb 13.6 g/dL g/dL (11.5-15.3) Hct 43.0 % % (37.0-47.0) MCV 95.8 fl fl (81-99) MCH 30.3 pg pg (28.0-34.0) MCHC 31.6 g/dL g/dL (30.0-36.0) RDW 14.2 % % (12.1-15.1) Plt Count 215 10^3/cmm 10^3 /cmm (130-400) MPV 10.4 fL fL (7.4-10.4) Neut % (Auto) 71.4 % % Lymph % (Auto) 21.6 % % [place] % (Auto) 6.4 % % Eos % (Auto) 0.0 % % Baso % (Auto) 0.2 % % Neut # (Auto) 3.58 10^3/uL 10^3 /uL (1.8-7.7) Lymph # (Auto) 1.1 10^3/uL 10^3/ uL (0.8-4.8) [place] # (Auto) 0.3 10^3/uL 10^3/ uL (0.2-0.9) Eos # (Auto) 0.0 10^3/uL 10^3/ uL (0.0-0.8) Baso # (Auto) 0.0 10^3/uL 10^3/ uL (0.0-0.1) Nucleated RBC % (a uto) 0 % % Nucleated RBCs # 0.0 /100WBC /100W BC D-Dimer 0.58 ug/mIFEU ug/ mIFEU (0-0.59) Sodium 135 mmol/L L mmol /L (136-145) Potassium 3.9 mmol/L mmol/L (3.5-5.1) Chloride 102 mmol/L mmol/L (98-107) Carbon Dioxide 17 mmol/L L mmol/ L (22-29) Anion Gap 19.9 H (5-19) BUN 16 mg/dL mg/dL (8-23) Creatinine 1.0 mg/dL H mg/dL (0.5-0.9) GFR Calculation Not Reportable Glucose 85 mg/dL mg/dL (65-115) Calculated Osmolal ity 280 mOsm/kg L mOs m/kg (285-295) Calcium 8.2 mg/dL L mg/dL (8.5-10.5) Total Bilirubin 0.2 mg/dL mg/dL (0.15-1.2) AST 21 U/L U/L (0-32) ALT 14 U/L U/L (0-33) Alkaline Phosphata se 98 IU/L IU/L (35-105) Total Protein 6.9 g/dL g/dL (6.6-8.7) Albumin 3.9 g/dL g/dL (3.5-5.2) Globulin 3.0 g/dL g/dL (1.3-4.6) Lipase 32 U/L U/L (13-60) Imaging Data: CXR: Attestation: I personally reviewed and interpreted this imaging study as follows: Radiologist's impression: [address] [place] [address] XRay Report Signed Patient: Deedee Centeno Unit #: [id number] : 1945 Age/Sex: 75 / F ADM Date: 08/13/21 Loc: ER Room/Bed: Attending Dr: Ordering Provider/Ordering MD: Maria D Monzon MD Date of Service: 08/13/21 Procedure(s): XR chest 1V portable [id number] Accession Number(s): [id number] Report Number: [id number] PROCEDURE INFORMATION: Exam: XR Chest Exam date and time: 08/13/2021 6:11 PM Age: 75 years old Clinical indication: Shortness of breath; Additional info: SOB TECHNIQUE: Imaging protocol: XR of the chest. Views: 1 view. COMPARISON: No relevant prior studies available. FINDINGS: Lungs: Unremarkable. No consolidation. Pleural spaces: Unremarkable. No pleural effusion. No pneumothorax. Heart/Mediastinum: Unremarkable. No cardiomegaly. Bones/joints: Unremarkable. XR/XR chest 1V portable [id number] IMPRESSION: No acute findings. Radiation Dose CTDIVOL = (mGy): DLP = (mGy-cm) Dictated By: Fabio Bergman MD Signed By: Fabio Bergman MD Signed Date/Time: 08/13/211915 DD/ 10 COVID Results: No Data to Display Discharge Plan Discharge Patient Disposition: Home Clinical Impression: COVID-19, COVID-19 Condition: Stable Prescriptions: New ondansetron 4 mg tablet,disintegrating 4 mg PO Q6H PRN (Reason: nausea and vomiting) Qty: 14 RF: 0 Discharge Orders: Discharge ED (Routine); Ordered 08/13/21 Ordered By: Maria D Monzon Other Ambulatory Orders: Request for MCA (Routine) Timeframe: 1 Day Facility: [facility] - Location: Outpatient Surgical Services Ordered By: Maria D Monzon Referrals: Ray Maria DO [Primary Care Provider] - 1-3 days Discharge Diet: Advance as tolerated Discharge Activity: Resume usual activity Patient Instructions: COVID-19 (Coronavirus Disease 2019) (ED) Coding Level of Care Code ED Reinforcement Maker for Elsag Fwd Exam Comprehensive
[2021-08-13 20:56] VITALS: O2SAT 95
[2021-08-13 21:03] LABS: Basophils % 0.2 %; Hemoglobin 13.6 g/dL (11.5-15.3); Lymphocytes # 1.1 10^3/uL (0.8-4.8); Lymphocytes % 21.6 %; Mean Corpuscular HGB Conc 31.6 g/dL (30.0-36.0); Mean Corpuscular Hemoglobin 30.3 pg (28.0-34.0); Mean Corpuscular Volume 95.8 fl (81-99); Mean Platelet Volume 10.4 fL (7.4-10.4); Monocytes # 0.3 10^3/uL (0.2-0.9); Monocytes % 6.4 %; Neutrophils # 3.58 10^3/uL (1.8-7.7); Neutrophils % 71.4 %; Nucleated Red Blood Cells % 0 %; Platelet Count 215 10^3/cmm (130-400); Red Blood Count 4.49 10^6/uL (4.1-5.3); Red Cell Distribution Width 14.2 % (12.1-15.1)
[2021-08-13 21:05] VITALS: O2SAT 95
[2021-08-13 21:40] LABS: D Dimer 0.58 ug/mIFEU (0-0.59)
[2021-08-13 22:04] VITALS: PULSE 63; RESP 19; O2SAT 93
[2021-08-13 22:14] LABS: Alanine Aminotransferase 14 U/L (0-33); Albumin Level 3.9 g/dL (3.5-5.2); Alkaline Phosphatase 98 IU/L (35-105); Anion Gap 19.9 (5-19); Aspartate Amino Transferase 21 U/L (0-32); Blood Urea Nitrogen 16 mg/dL (8-23); Calcium 8.2 mg/dL (8.5-10.5); Carbon Dioxide 17 mmol/L (22-29); Chloride 102 mmol/L (98-107); Glucose 85 mg/dL (65-115); Lipase 32 U/L (13-60); Osmolality Calculated 280 mOsm/kg (285-295); Potassium 3.9 mmol/L (3.5-5.1); Sodium 135 mmol/L (136-145); Total Bilirubin 0.2 mg/dL (0.15-1.2); Total Protein 6.9 g/dL (6.6-8.7)
[2021-08-13 23:00] VITALS: BP 137/74; O2SAT 97
== END 2021-08-13 23:09 | disposition home or self-care (01) ==
PROVIDERS: Emergency Provider Emergency Medicine; PCP Internal Medicine
DX: U07.1 COVID-19 (principal)
CPT/HCPCS: 71045; 80053; 83690; 85025; 85378; 96374; 99284; J2405

== ENCOUNTER 2021-08-17 11:54 | Outpatient (CLI) | payer MEDICARE, SELFPAY ==
[2021-08-17 12:05] VITALS: BP 115/57; PULSE 51; RESP 20; TEMP 36.8; O2SAT 94
[2021-08-17 12:15] VITALS: BMI 43.0
[2021-08-17 12:41] VITALS: BP 106/60; PULSE 51; RESP 18; TEMP 36.1; O2SAT 93
[2021-08-17 13:55] VITALS: BP 107/62; PULSE 52; RESP 18; TEMP 37.2; O2SAT 93
== END 2021-08-17 11:55 | disposition home or self-care (01) ==
LOC: OPS 11:56
PROVIDERS: PCP Internal Medicine; Visit Provider Nurse Practitioner Family
DX: U07.1 COVID-19 (principal)
CPT/HCPCS: 96365

== ENCOUNTER → 2021-11-21 09:45 | Outpatient (BNVA) | payer MEDICARE, SELFPAY | PROVIDERS: PCP Internal Medicine; Visit Provider Internal Medicine Cardiovascular Disease | DX: I48.0 Paroxysmal atrial fibrillation (principal); I11.0 Hypertensive heart disease with heart failure; I27.20 Pulmonary hypertension, unspecified | CPT/HCPCS: 99214 ==

== ENCOUNTER → 2022-01-31 09:26 | Outpatient (BNVA) | payer MEDICARE, SELFPAY | PROVIDERS: PCP Internal Medicine; Visit Provider Internal Medicine Pulmonary Disease | DX: R06.00 Dyspnea, unspecified (principal); I27.20 Pulmonary hypertension, unspecified; I48.0 Paroxysmal atrial fibrillation; J41.1 Mucopurulent chronic bronchitis; Z86.16 Personal history of COVID-19 | CPT/HCPCS: 99214 ==

== ENCOUNTER 2022-02-05 07:51 | Outpatient (CLI) | payer MEDICARE, SELFPAY ==
--- NOTE | 2022-02-05 11:03 | PFTS_ITS ---
Date of Study:02/05/22 Date of Dictation: MECHANICS: Forced vital capacity (FVC) is reduced. Forced expiratory volume in one second (FEV1) is reduced. FEV1/FVC is normal. FLOW VOLUME LOOP: Mild scooping. LUNG VOLUMES: Total lung capacity (TLC) is normal. Residual volume (RV) is normal. DIFFUSING CAPACITY FOR CARBON MONOXIDE: Not measured. INTERPRETATION: The prebronchodilator spirometry is consistent with mild restriction. No postbronchodilator spirometry was performed. Lung volumes are normal. The constellation would be consistent with nonspecific ventilatory limitations. Gas exchange (DLCO) was not measured. MTDD
== END 2022-02-05 07:52 | disposition home or self-care (01) ==
LOC: RT 07:53
PROVIDERS: PCP Internal Medicine; Visit Provider Internal Medicine Pulmonary Disease
DX: R06.00 Dyspnea, unspecified (principal)
CPT/HCPCS: 94010; 94726; 94729

== ENCOUNTER 2022-02-20 13:22 | Outpatient (CLI) | payer MEDICARE, SELFPAY ==
--- NOTE | 2022-02-20 14:30 | CT_ITS ---
WS: [id number] CT CHEST TECHNIQUE: Noncontrast CT of the chest with coronal and sagittal reformatted images. CLINICAL INFORMATION: evaluate parenchymal changes and possible bronchiectasis in COMPARISON: None. DLP: 705.[address] scans at [facility] use at least one of these dose optimization techniques: automated e xposure control; mA and/or kV adjustment per patient size (includes targeted exams where dose is matc hed to clinical indication); or iterative reconstruction. FINDINGS: Mild chronic emphysematous changes. Slight subsegmental atelectasis LEFT lower lobe. Fibrosis in the lung apices. A few calcified granulomas. No acute pulmonary infiltrates. No suspicious pulmonary pare nchymal abnormalities. Normal caliber thoracic aorta. Aortic calcification. Coronary calcification. Small nodules in the thy roid. No mediastinal or hilar lymphadenopathy. Calcified anterior mediastinal and RIGHT hilar lymph n odes. No axillary lymphadenopathy. Adrenal glands are normal. Splenic granulomas. Tiny esophageal hiatal hernia. Prior cholecystectomy. Mild thoracic kyphosis. Hypertrophic changes mid thoracic spine. CT/CT chest wo con [id number] IMPRESSION: 1. Mild chronic emphysematous changes. Slight subsegmental atelectasis LEFT lo wer lobe. 2. No acute pulmonary infiltrates. 3. Coronary calcification. 4. Tiny nodules in the thyroid. 5. Prior cholecystectomy. 6. Tiny esophageal hiatal hernia.
== END 2022-02-20 13:23 | disposition home or self-care (01) ==
LOC: RAD 13:24
PROVIDERS: PCP Internal Medicine; Visit Provider Internal Medicine Pulmonary Disease
DX: J41.1 Mucopurulent chronic bronchitis (principal); K44.9 Diaphragmatic hernia without obstruction or gangrene; I25.10 Atherosclerotic heart disease of native coronary artery without angina pectoris
CPT/HCPCS: 71250

== ENCOUNTER → 2022-05-31 09:25 | Outpatient (BNVA) | payer MEDICARE, SELFPAY | PROVIDERS: PCP Internal Medicine; Visit Provider Internal Medicine Pulmonary Disease | DX: R06.00 Dyspnea, unspecified (principal); J41.1 Mucopurulent chronic bronchitis; I27.20 Pulmonary hypertension, unspecified; I48.0 Paroxysmal atrial fibrillation; I25.10 Atherosclerotic heart disease of native coronary artery without angina pectoris; Z86.16 Personal history of COVID-19; Z87.891 Personal history of nicotine dependence; Z79.01 Long term (current) use of anticoagulants | CPT/HCPCS: 99214 ==

== ENCOUNTER → 2022-07-01 09:23 | Outpatient (BNVA) | payer MEDICARE, SELFPAY | PROVIDERS: PCP Internal Medicine; Visit Provider Internal Medicine Cardiovascular Disease | DX: I48.0 Paroxysmal atrial fibrillation (principal); Z79.01 Long term (current) use of anticoagulants; I10 Essential (primary) hypertension; I27.20 Pulmonary hypertension, unspecified; Z79.899 Other long term (current) drug therapy; R00.1 Bradycardia, unspecified; Z87.891 Personal history of nicotine dependence; R06.02 Shortness of breath | CPT/HCPCS: 36415; 80048; 83735; 83880; 99214 ==

== ENCOUNTER → 2022-11-29 09:57 | Outpatient (BNVA) | payer MEDICARE, SELFPAY | PROVIDERS: PCP Internal Medicine; Visit Provider Internal Medicine Pulmonary Disease | DX: J44.9 Chronic obstructive pulmonary disease, unspecified (principal); I27.20 Pulmonary hypertension, unspecified; I48.0 Paroxysmal atrial fibrillation; I25.10 Atherosclerotic heart disease of native coronary artery without angina pectoris; Z86.16 Personal history of COVID-19; Z87.891 Personal history of nicotine dependence; Z79.01 Long term (current) use of anticoagulants; Z79.899 Other long term (current) drug therapy | CPT/HCPCS: 99214 ==

== ENCOUNTER → 2023-01-06 13:47 | Outpatient (BNVA) | payer MEDICARE, SELFPAY | PROVIDERS: PCP Internal Medicine; Visit Provider Internal Medicine Cardiovascular Disease | DX: I48.0 Paroxysmal atrial fibrillation (principal); I10 Essential (primary) hypertension; I27.20 Pulmonary hypertension, unspecified; R06.09 Other forms of dyspnea; Z79.01 Long term (current) use of anticoagulants; Z87.891 Personal history of nicotine dependence | CPT/HCPCS: 99214 ==

== ENCOUNTER → 2023-05-12 15:42 | Outpatient (BNVA) | payer MEDICARE, SELFPAY | PROVIDERS: PCP Internal Medicine; Visit Provider Internal Medicine Cardiovascular Disease | DX: R06.02 Shortness of breath (principal); I48.0 Paroxysmal atrial fibrillation; I27.20 Pulmonary hypertension, unspecified; Z79.899 Other long term (current) drug therapy; N18.9 Chronic kidney disease, unspecified; Z87.891 Personal history of nicotine dependence | CPT/HCPCS: 36415; 80048; 99214 ==

== ENCOUNTER → 2023-06-24 13:28 | Outpatient (BNVA) | payer MEDICARE, SELFPAY | PROVIDERS: PCP Internal Medicine; Visit Provider Nurse Practitioner Family | DX: L91.8 Other hypertrophic disorders of the skin (principal); L57.8 Other skin changes due to chronic exposure to nonionizing radiation; L81.4 Other melanin hyperpigmentation; L82.1 Other seborrheic keratosis | CPT/HCPCS: 11200; 99213 ==

== ENCOUNTER → 2023-08-26 10:26 | Outpatient (BNVA) | payer MEDICARE, SELFPAY | PROVIDERS: PCP Internal Medicine; Visit Provider Student in an Organized Health Care Education/Training Program | DX: M70.61 Trochanteric bursitis, right hip; M54.51 Vertebrogenic low back pain | CPT/HCPCS: 99203 ==

== ENCOUNTER → 2023-09-01 09:11 | Outpatient (BNVA) | payer MEDICARE, SELFPAY | PROVIDERS: PCP Internal Medicine; Visit Provider Internal Medicine Pulmonary Disease | DX: R06.00 Dyspnea, unspecified (principal); I27.20 Pulmonary hypertension, unspecified; I48.0 Paroxysmal atrial fibrillation | CPT/HCPCS: 99214 ==

== ENCOUNTER → 2023-10-02 14:09 | Outpatient (BNVA) | payer MEDICARE, SELFPAY | PROVIDERS: PCP Internal Medicine; Visit Provider Orthopaedic Surgery | DX: M48.062 Spinal stenosis, lumbar region with neurogenic claudication (principal); M51.16 Intervertebral disc disorders with radiculopathy, lumbar region; M41.56 Other secondary scoliosis, lumbar region | CPT/HCPCS: 72110; 99204 ==

== ENCOUNTER 2023-10-02 21:51 | Observation (INO) | payer MEDICARE, MEDICAID, SELFPAY ==
--- NOTE | 2023-10-02 21:54 | XRR_ITS ---
PROCEDURE INFORMATION: Exam: XR Chest Exam date and time: 10/02/2023 10:14 PM Age: 77 years old Clinical indication: Angina pectoris; Patient HX: Chest pain TECHNIQUE: Imaging protocol: Radiologic exam of the chest. Views: 1 view. COMPARISON: CT chest con [id number] 02/20/2022 1:53 PM FINDINGS: Tubes, catheters and devices: EKG monitoring leads overlie the thoracic wall. Lungs: There is no consolidation. Pleural spaces: No pleural effusion or pneumothorax. Heart/Mediastinum: The heart and mediastinum are normal in size. Bones/joints: Unremarkable. XR/XR chest 1V portable [id number] IMPRESSION: No acute findings.
[2023-10-02 21:58] VITALS: BP 110/66; PULSE 68; RESP 22; TEMP 36.3; O2SAT 98; BMI 31.3
--- NOTE | 2023-10-02 21:59 | ECG_ITS ---
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 Measurements Intervals [place] Rate: 68 P: 68 VT: 132 QRS: 34 QRSD: 98 T: 75 QT: 422 QTc: 450 Interpretive Statements SINUS RHYTHM ST DEVIATION AND MODERATE T-WAVE ABNORMALITY, CONSIDER ANTEROLATERAL ISCHEMIA [-0.1+ mV T-WAVE IN V3-V6] Compared to ECG 07/31/2020 12:07:44 Possible ischemia now present Sinus bradycardia no longer present T-wave abnormality still present Electronically Signed On 10-03-2023 12:19:20 WARP PICKER by Etienne Garcia M.D. [id number] f
--- NOTE | 2023-10-02 22:08 | ED_ITS ---
HPI - Chest Pain 2 General: Chief Complaint: Chest Pain Stated Complaint: cp Time Seen by Provider: 10/02/23 21:53 Source: patient Mode of arrival: ambulatory Limitations: no limitations History of Present Illness: 77-year-old female states she has been u nder a lot of stress lately. States she has had chest pain since yesterday morning it has been a sharp pain and she just feels extremely overwhelmed. She states that her pipes and busted in her house and she cannot get anyone to come out states her furnace is when out and she again cannot get able to come out to fix her friends states that since being here she feels much improved her pain is resolved she denies any shortness of breath. Associated symptoms: Deny abdominal pain, dyspnea, fever(s), nausea or vomiting Review of Systems 2 Const: Denies: fever(s), chills, body aches or change in appetite ENMT: Denies: throat pain or dental pain Card: Reports: chest pain Resp: Denies: dyspnea GI: Denies: abdominal pain, nausea, vomiting or diarrhea Musc: Denies: neck pain or back pain Skin/Breast: Denies: rash Neuro: Denies: headache(s) PFSH ED 2 PFSH: Medical History Pulmonary hypertension Atypical chest pain The EKG from 11/23/2019 showed sinus rhythm with short MS interval. Some nonspecific T wave changes. Low QRS voltage in the precordial leads. GERD (gastroesophageal reflux disease) Atrial fibrillation Hypertension Cardiomyopathy Radiculopathy Anxiety disorder Surgical History Hx of cholecystectomy H/O: hysterectomy History of ear surgery H/O breast biopsy Family History Mother CAD (coronary artery disease) Grandmother CAD (coronary artery disease) Brother CAD (coronary artery disease) Diabetes Sister Stroke Cancer Denies family history of Clotting disorder Dementia Chronic kidney disease (CKD) Suicide Anesthesia complication Bleeding disorder Lung disease Social History Smoking and tobacco/nicotine status: former use of tobacco/nicotine Quit status (tobacco/nicotine): has quit using Year quit tobacco: 1982 Former quit date comment: 1ppd x 15 years Alcohol intake: never Substance/Drug Use: never Physical Exam 2 Const: COMMON NORMALS: no acute distress, patient oriented x3 and healthy appearing HENMT: COMMON NORMALS: normocephalic and atraumatic HEAD & SCALP: n ormocephalic and atraumatic Eye: COMMON NORMALS: Equal, round and reactive pupils present and EOMs intact bilaterally PUPIL: Yes Equal, round and reactive pupils present Neck/C-Spine: COMMON NORMALS: full ROM and supple Chest: COMMONS NORMALS: normal inspection of the chest and normal palpation of entire chest wall Resp: COMMON NORMALS: normal respiratory effort, No retractions, No use of accessory muscles and clear to auscultation bilaterally AUSCULTATION: clear to auscultation bilaterally Cardio: COMMON NORMALS: regular rate, regular rhythm and No murmurs present (Cardio) RATE: regular rate RHYTHM: regular rhythm GI: COMMON NORMALS: Normal to inspection, nondistended, normoactive bowel sounds present, Soft to palpation, non-tender and no masses PALPATION: Yes Soft to palpation Extremity: COMMON NORMALS: normal to inspection and full ROM Neuro: COMMON NORMALS: patient oriented x3, moves all extremities and no focal motor deficits Psych: COMMON NORMALS: mental status grossly normal, Normal thought process present and cooperative THOUGHT PROCESS: Normal thought process present Skin: COMMON NORMALS: no rashes or lesions noted and no wounds GENERAL SKIN EXAM: no rashes or lesions noted Course 2 Vital Signs: Vital signs: Vital Signs Temperature 97.4 F L 10/02/23 21:58 Pulse Rate 68 10/02/23 21:58 Respiratory Rate 22 H 10/02/23 21:58 Blood Pressure 110/66 10/02/23 21:58 Pulse Oximetry 98 10/02/23 21:58 Oxygen Delivery Me thod Room Air 10/02/23 21:58 MDM - Chest Pain Medical Decision Making Patient presents for chest pain she does have an elevated troponin her second EKG here does show some T wave inversion and ST depression her pain here is improved she had some slight nausea she has no ST elevation MT we will start Lovenox will admit patient this time for ACS rule out Medical Records I reviewed the patient's medical records. Lab Data I reviewed the patient's lab results. 10/02/23 22:08 10/02/23 22:08 Radiology Impressions Chest X-Ray 10/02/23 21:54 IMPRESSION: No acute findings. Laboratory Results WBC 11.53 10^3/uL (3.29-11.43) H 10/02/23 22:08 RBC 4.72 10^6/uL (3.85-5.65) 10/02/23 22:08 Hgb 14.80 g/dL (11.27-16.99) 10/02/23 22:08 Hct 45.5 % (36-47) 10/02/23 22:08 MCV 96.4 fl (85-98) 10/02/23 22:08 MCH 31.4 pg (27-33) 10/02/23 22:08 MCHC 32.5 g/dL (30-55) 10/02/23 22:08 RDW 15.1 % (12.1-15.1) 10/02/23 22:08 Plt Count 426 10^3/cmm (157-399) H 10/02/23 22:08 MPV 10.1 fL (7.4-10.4) 10/02/23 22:08 Neut % (Auto) 54.7 % 10/02/23 22:08 Lymph % (Auto) 36.4 % 10/02/23 22:08 [place] % (Auto) 7.4 % 10/02/23 22:08 Eos % (Auto) 0.6 % 10/02/23 22:08 Baso % (Auto) 0.6 % 10/02/23 22:08 Neut # (Auto) 6.30 10^3/uL (1.8-7.7) 10/02/23 22:08 Lymph # (Auto) 4.2 10^3/uL (0.8-4.8) 10/02/23 22:08 [place] # (Auto) 0.9 10^3/uL (0.2-0.9) 10/02/23 22:08 Eos # (Auto) 0.1 10^3/uL (0.0-0.8) 10/02/23 22:08 Baso # (Auto) 0.1 10^3/uL (0.0-0.1) 10/02/23 22:08 Nucleated RBC % (auto) 0 % 10/02/23 22:08 Nucleated RBCs # 0.0 /100WBC 10/02/23 22:08 PT 14.00 SECONDS (12.1-14.9) 10/02/23 22:08 INR 1.05 (0.8-1.2) 10/02/23 22:08 Sodium 139 mmol/L (136-145) 10/02/23 22:08 Potassium 4.4 mmol/L (3.5-5.1) 10/02/23 22:08 Chloride 100 mmol/L (98-107) 10/02/23 22:08 Carbon Dioxide 24 mmol/L (22-29) 10/02/23 22:08 Anion Gap 19.4 (5-19) H 10/02/23 22:08 BUN 23 mg/dL (8-23) 10/02/23 22:08 Creatinine 1.2 mg/dL (0.5-0.9) H 10/02/23 22:08 GFR Calculation Not Reportable 10/02/23 22:08 Glucose 118 mg/dL (65-115) H 10/02/23 22:08 Calculated Osmolality 293 mOsm/kg (285-295) 10/02/23 22:08 Calcium 10.3 mg/dL (8.5-10.5) 10/02/23 22:08 Total Bilirubin 0.4 mg/dL (0.15-1.2) 10/02/23 22:08 AST 23 U/L (0-32) 10/02/23 22:08 ALT 14 U/L (0-33) 10/02/23 22:08 Alkaline Phosphatase 119 U/L (35-105) H 10/02/23 22:08 Troponin T Baseline 126 ng/L (0-10) H* 10/02/23 22:08 Total Protein 7.2 g/dL (6.6-8.7) 10/02/23 22:08 Albumin 4.2 g/dL (3.5-5.2) 10/02/23 22:08 Globulin 3.0 g/dL (1.3-4.6) 10/02/23 22:08 Lipase 29 U/L (13-60) 10/02/23 22:08 All radiology interpretation(s) finalized by discharge EKG Data EKG 1: I personally reviewed and interpreted this EKG as follows: EKG interpretation date: 10/02/23 EKG interpretation time: 21:59 Interpretation: nsr hr [address] or t wave abnormalities qrs 98 qtc 439 Discharge Plan Discharge Patient Disposition: Admitted As Inpatient Clinical Impression: Non-ST elevation MT (NSTEMI) Condition: Stable Prescriptions: No Action albuterol sulfate [Ventolin HFA] 90 mcg/actuation HFA aerosol inhaler 2 puff INHALATION Q6H PRN (Reason: Shortness Of Breath) potassium chloride 10 mEq tablet extended release 10 meq PO DAILY furosemide 40 mg tablet 40 mg PO DAILY tizanidine 4 mg tablet 1 mg PO TID PRN (Reason: muscle spasticity) imiquimod 5 % cream in packet 1 applic topical ONCE Qty: 24 1RF Rx Instructions: Apply thin film to right jainism Friday-Friday (off weekends) for 6 weeks guaifenesin [Wal-Tussin] 100 mg/5 mL liquid 200 mg PO Q12H PRN (Reason: cough) Qty: 473 2RF fluticasone propion-salmeterol [Advair Diskus] 500-50 mcg/dose blister with device 1 inh inhalation Q12H Qty: 60 4RF doxycycline hyclate 100 mg tablet 100 mg PO BID Qty: 10 0RF (DME) Acapella See Rx Instructions .Route .MEDSUPPLY Qty: 1 0RF Rx Instructions: As directed losartan 50 mg tablet 50 mg PO DAILY Qty: 90 2RF Eliquis 5 mg tablet 5 mg PO BID Qty: 180 3RF propafenone 150 mg tablet See Rx Instructions .ROUTE .COMPLEX Qty: 180 5RF Dose Instruction: TAKE 2 TABLETS BY MOUTH EVERY 8 HOURS . Rx Instructions: TAKE 2 TABLETS BY MOUTH EVERY 8 HOURS . naproxen sodium 220 mg Capsule 220 mg PO BID PRN (Reason: Pain) Referrals: Ray Maria DO [Primary Care Provider] - Coding Level of Care Code ED Fibreglass Lay Up Worker for Chg Shannan
[2023-10-02 22:14] LABS: Basophils # 0.1 10^3/uL (0.0-0.1); Basophils % 0.6 %; Eosinophils # 0.1 10^3/uL (0.0-0.8); Eosinophils % 0.6 %; Hematocrit 45.5 % (36-47); Lymphocytes # 4.2 10^3/uL (0.8-4.8); Lymphocytes % 36.4 %; Mean Corpuscular HGB Conc 32.5 g/dL (30-55); Mean Corpuscular Hemoglobin 31.4 pg (27-33); Mean Corpuscular Volume 96.4 fl (85-98); Mean Platelet Volume 10.1 fL (7.4-10.4); Monocytes # 0.9 10^3/uL (0.2-0.9); Monocytes % 7.4 %; Neutrophils % 54.7 %; Nucleated Red Blood Cells % 0 %; Platelet Count 426 10^3/cmm (157-399); Red Blood Count 4.72 10^6/uL (3.85-5.65); Red Cell Distribution Width 15.1 % (12.1-15.1); White Blood Count 11.53 10^3/uL (3.29-11.43)
[2023-10-02 22:25] LABS: INR 1.05 (0.8-1.2)
[2023-10-02] MEDS: aspirin 81 mg Chew Tablet 324 MG PO (22:44)
[2023-10-02 22:45] LABS: Alanine Aminotransferase 14 U/L (0-33); Albumin Level 4.2 g/dL (3.5-5.2); Alkaline Phosphatase 119 U/L (35-105); Blood Urea Nitrogen 23 mg/dL (8-23); Calcium 10.3 mg/dL (8.5-10.5); Carbon Dioxide 24 mmol/L (22-29); Chloride 100 mmol/L (98-107); Glucose 118 mg/dL (65-115); Lipase 29 U/L (13-60); Osmolality Calculated 293 mOsm/kg (285-295); Sodium 139 mmol/L (136-145); Total Bilirubin 0.4 mg/dL (0.15-1.2); Total Protein 7.2 g/dL (6.6-8.7)
[2023-10-02 22:51] LABS: Anion Gap 19.4 (5-19); Aspartate Amino Transferase 23 U/L (0-32); Potassium 4.4 mmol/L (3.5-5.1)
[2023-10-02 22:52] LABS: Troponin(5th) Baseline 126 ng/L (0-10)
[2023-10-02] MEDS: enoxaparin 100 mg/mL Syringe 90 MG SUBCUT (23:32)
[2023-10-02] MEDS: ondansetron 2 mg/ML SDV 2 mL 4 MG IVP (23:33)
[2023-10-02] MEDS: HYDROmorphone 1 mg/mL INJ 1 mL 0.5 MG IVP (23:33)
[2023-10-02] MEDS: sodium chloride 0.9% 1,000 ML 999 ML IV (23:34)
[2023-10-02 23:38] VITALS: BP 120/67; PULSE 66; RESP 16; O2SAT 98
--- NOTE | 2023-10-02 23:54 | ECG_ITS ---
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 Measurements Intervals [place] Rate: 62 P: 62 HI: 130 QRS: 34 QRSD: 93 T: 147 QT: 444 QTc: 453 Interpretive Statements SINUS RHYTHM ST DEVIATION AND MODERATE T-WAVE ABNORMALITY, CONSIDER ANTEROLATERAL ISCHEMIA [-0.1+ mV T-WAVE IN V3-V6] Compared to ECG 10/02/2023 21:59:55 No significant changes Electronically Signed On 10-03-2023 12:28:06 EMBROIDERY PATTERNMAKER by Etienne Garcia M.D. [id number]
[2023-10-03] VITALS (12 sets, daily range): BP systolic 100–124; BP diastolic 44–69; PULSE 56–69; RESP 13–22; TEMP 36.4–37; O2SAT 90–97
--- NOTE | 2023-10-03 00:06 | P.HP_ITS ---
Providers/Chief Complaint 2 Admitting Physician: Moi Leiva MD Primary Care Provider: Ray Maria DO Chief Complaint: cp History of Present Illness Deedee Centeno is a 77 year old female with a past medical history of atrial fibrillation, history of hypertension, pulmonary hypertension, history of normal coronary angiography in 2016, who presents [facility] for 48- hour history of chest pain. Patient tells me that yesterday she started to develop substernal chest pain, lasting a few minutes, nonradiating, no shortness of breath, no nausea, no vomiting it persisted throughout the day yesterday. Today her chest pain is now associate with severe nausea, feeling unwell, episodes of vomiting, nonradiating, substernal feeling like something sitting on her chest, upon arrival to the emergency room, she was found to have a troponin 126, EKG shows T wave inversions in anterior lateral leads, show her chest pain is 5 out of 10 currently, with severe nausea and vomiting, emergency room physician has given her aspirin, she has been loaded with Lovenox, patient did not take Eliquis this morning, or this evening, she thinks she vomited up all the aspirin she was given Review of Systems 2 Card: Reports: chest pain Resp: Denies: dyspnea Medications/Allergies Home Medications Medication Instructions Recorded Confirmed Last Taken Type albuterol sulfate 90 mcg/actuation 2 puff inhalation Q6H PRN 11/23/19 10/02/23 Unknown History aerosol inhaler (Ventolin HFA) Shortness Of Breath furosemide 40 mg tablet 40 mg PO DAILY 03/22/20 10/02/23 07/30/20 History potassium chloride 10 mEq 10 meq PO DAILY 03/22/20 10/02/23 07/30/20 History tablet,extended release tizanidine 4 mg tablet 1 mg PO TID PRN muscle spasticity 11/21/21 10/02/23 Unknown History losartan 50 mg tablet 50 mg PO DAILY #90 tabs 04/30/23 10/02/23 Unknown Rx apixaban 5 mg tablet (Eliquis) 5 mg PO BID #180 tabs 05/15/23 10/03/23 10/01/23 21:00 Rx Acapella #1 ea 09/01/23 10/02/23 Unknown Rx fluticasone 500 mcg-salmeterol 50 1 inh inhalation Q12H #60 ea 09/01/23 10/02/23 Unknown Rx mcg/dose blistr powdr for inhalation (Advair Diskus) guaifenesin 100 mg/5 mL oral 200 mg (10 mL) PO Q12H PRN cough 09/01/23 10/02/23 Unknown Rx liquid (Wal-Tussin) #473 mL propafenone 150 mg tablet 300 mg PO Q8H 10/02/23 10/03/23 10/02/23 09:00 History Allergies Allergy/AdvReac Type Severity Reaction Status Date / Time iodine Allergy Unknown unknown Verified 10/02/23 14:16 morphine Allergy Unknown unknown Verified 10/02/23 14:16 rosuvastatin [From Crestor] Allergy Unknown Unknown Verified 10/02/23 14:16 shrimp Allergy Unknown unknown Verified 10/02/23 14:16 PFSH Acute 2 PFSH: Medical History Pulmonary hypertension Atypical chest pain The EKG from 11/23/2019 showed sinus rhythm with short [place] interval. Some nonspecific T wave changes. Low QRS voltage in the precordial leads. GERD (gastroesophageal reflux disease) Atrial fibrillation Hypertension Cardiomyopathy Radiculopathy Anxiety disorder Surgical History Hx of cholecystectomy H/O: hysterectomy History of ear surgery H/O breast biopsy Family History Mother CAD (coronary artery disease) Grandmother CAD (coronary artery disease) Brother CAD (coronary artery disease) Diabetes Sister Stroke Cancer Denies family history of Clotting disorder Dementia Chronic kidney disease (CKD) Suicide Anesthesia complication Bleeding disorder Lung disease Social History Smoking and tobacco/nicotine status: former use of tobacco/nicotine Quit status (tobacco/nicotine): has quit using Year quit tobacco: 1982 Former quit date comment: 1ppd x 15 years Alcohol intake: never Substance/Drug Use: never Vitals/I&O/Wt Last Vital Signs Temp 97.4 F L 10/02/23 21:58 Pulse 66 10/02/23 23:38 Resp 16 10/02/23 23:38 BP 120/67 10/02/23 23:38 Pulse Ox 98 10/02/23 23:38 O2 Del Method Room Air 10/02/23 23:38 Weight last 48 hrs Weight 90.718 kg Physical Exam 2 Const: COMMON NORMALS: no acute distress and patient oriented x3 HENMT: COMMON NORMALS: normocephalic HEAD & SCALP: normocephalic Neck/C-Spine: COMMON NORMALS: no JVD Resp: COMMON NORMALS: normal respiratory effort, No retractions, No use of accessory muscles and clear to auscultation bilaterally AUSCULTATION: clear to auscultation bilaterally Cardio: COMMON NORMALS: regular rate, regular rhythm, S1 normal heart sound present and S2 normal heart sound present RATE: regular rate RHYTHM: r egular rhythm HEART SOUNDS: S1 normal heart sound present and S2 normal heart sound present GI: COMMON NORMALS: Normal to inspection, nondistended, normoactive bowel sounds present, Soft to palpation and non-tender Extremity: COMMON NORMALS: no pedal edema Neuro: COMMON NORMALS: patient oriented x3, CN's II-XII intact bilaterally, moves all extremities and no focal motor deficits Psych: COMMON NORMALS: mental status grossly normal Data 10/02/23 22:08 10/02/23 22:08 A&P Assessment and plan (1) Unstable angina: (2) Non-ST elevation MD (NSTEMI): (3) Atrial fibrillation: Qualifiers: Atrial fibrillation type: paroxysmal Qualified Code(s): I48.0 - Paroxysmal atrial fibrillation Plan Unstable angina, NSTEMI -Troponin 120, has EKG changes, T wave inversions in anterior lateral leads -Persistent chest pain, severe nausea and vomiting Plan -Monitor in cardiac stepdown unit -Serial EKGs, serial troponins, telemetry monitoring -Cardiac echo -Loaded with Plavix -Continue aspirin, statin -Therapeutic Lovenox -Cardiac echo -Dilaudid for pain control -Nitro glycerin drip due to persistent chest pain -Will consult with cardiology in the a.m., or sooner depending on patient's clinical progress -Full code -Lovenox for DVT prophylaxis Attestations 2 Medical Necessity Statement*: Patient requires hospitalization, inpatient, greater than 2 midnights, for unstable angina, NSTEMI Diagnoses Unstable angina I20.0 Non-ST elevation MD (NSTEMI) I21.4 Paroxysmal atrial fibrillation I48.0 Atrial fibrillation type: paroxysmal
--- NOTE | 2023-10-03 00:13 | USCV_ITS ---
Deedee Centeno Age: 77 Gender: F : 1945 Exam Date: 10/03/2023 03:56 Ordering Phys: Moi Leiva MD Technologist: ALYSSA [place]am [place] [facility] [place] Indication: NSTEMI. No history of cardiac intervention per patient. BP: 119 / 69 HR: 61 Rhythm: Sinus Technical Quality: Adequate MEASUREMENTS (Male / Female) Normal Values 2D ECHO LV Diastolic Diameter PLAX 4.3 cm 4.2 - 5.9 / 3.9 - 5.3 cm LV Systolic Diameter PLAX 2.9 cm IVS Diastolic Thickness 1.2 cm 0.6 - 1.0 / 0.6 - 0.9 cm IVS Systolic Thickness 1.6 cm LVPW Diastolic Thickness 1.1 cm 0.6 - 1.0 / 0.6 - 0.9 cm LVPW Systolic Thickness 1.4 cm LVOT Diameter 1.8 cm LV Ejection Fraction 2D Teich 61.6 % LV Ejection Fraction MOD 2C 71.0 % LV Ejection Fraction 2C AL 72.2 % LA Diameter 4.3 cm LA Width 3.4 cm LA Height 6.8 cm RA Width 3.6 cm RA Height 4.1 cm Aorta at Sinotubular Diameter 2.7 cm IVC Diameter 1.7 cm M-MODE Aortic Annulus Diameter 2.8 cm LA Ao Ratio MM 1.7 MV E Point Septal Separation 0.4 cm DOPPLER AV Peak Velocity 123.0 cm/s LVOT Peak Velocity 118.0 cm/s AV Area Cont Eq vti 2.0 cm squared AV Area Cont Eq pk 2.4 cm squared MV Peak Velocity 105.0 cm/s MV Area PHT 3.4 cm squared Mitral E to A Ratio 1.7 MV E' Velocity 50.5 cm/s Mitral E to MV E' Ratio 7.1 Mitral E to LV E' Lateral Ratio 7.4 Mitral E to LV E' Septal Ratio 6.9 TR Peak Velocity 320.0 cm/s TR Peak Gradient 41.0 mmHg TV Peak E Velocity 39.0 cm/s Right Atrial Pressure 10.0 mmHg Pulmonary Artery Systolic Pressu 51.0 mmHg PV Peak Velocity 103.0 cm/s RV Acceleration Time 0.1 s RV Ejection Time 0.4 s RV AcT/ET 0.2 FINDINGS Left Ventricle Left ventricle is normal in size. LV systolic function is normal with EF of 60 to 65%. No regional wall motion abnormalities are seen. Right Ventricle Normal in size and function Right Atrium Normal in size Left Atrium Normal in size Mitral Valve Structurally normal mitral valve. Mild mitral regurgitation. Aortic Valve Structurally normal aortic valve. No significant stenosis or regurgitation. Tricuspid Valve Mild to moderate tricuspid regurgitation. RVSP is 50-55 mmHg. This is consistent with moderate pulmonary hypertension. Pulmonic Valve Not well visualized Pericardium Normal Aorta Normal in size IVC Appears to be normal CONCLUSIONS LV systolic function is normal with EF of 60 to 65%. Mild mitral regurgitation Mild to moderate tricuspid regurgitation Moderate pulmonary hypertension Compared to prior echocardiogram from 2019, no significant changes are seen Etienne Garcia MD (Electronically Signed) Final Date: 03 October 2023 12:41 S
--- NOTE | 2023-10-03 00:41 | PC.NURSE ---
Spoke with regarding patient is due for rythmol dose but hr is running 56-58. said hold dose now.
[2023-10-03 00:44] LABS: NT Pro B Type Natriuretic Pept 1192 pg/mL (0-450)
[2023-10-03] MEDS: metoclopramide 5 mg/mL SDV 2 mL IVP (00:48)
[2023-10-03] MEDS: pantoprazole 40 mg SDV IVP (00:48)
[2023-10-03] MEDS: sodium chloride 0.9% 1,000 ML 50 ML IV (00:49)
[2023-10-03] MEDS: ondansetron 2 mg/ML SDV 2 mL 4 MG IVP (01:39)
[2023-10-03 01:48] LABS: Troponin 5 2HR 201.5 ng/L (0-10); Troponin 5 2HR Delta 75.5 ABS# (0-10)
[2023-10-03 01:51] LABS: Chol HDL Ratio 5.87 mg/dL (0.0-4.40); Cholesterol 176 mg/dL (0-200); HDL Cholesterol 30 mg/dL (60-100); LDL Cholesterol Calculated 123 mg/dL (50-129); Thyroid Stimulating Hormone 7.16 uIU/mL (0.27-4.20); Triglycerides 113 mg/dL (0-150)
[2023-10-03] MEDS: clopidogrel 300 mg Tablet PO (01:54)
--- NOTE | 2023-10-03 03:54 | ECG_ITS ---
[facility] Test Date: 2023-10-02 Pat Name: Deedee Centeno Department: Room: 111 Gender: Female [employer] [employer] Operator: : 1945 Requested By: Maria D Monzon Order Number: [id number] Cheryl MD: Etienne Garcia M.D. Measurements Intervals [place] Rate: 62 P: 117 AK: 145 QRS: 156 QRSD: 84 T: 38 QT: 423 QTc: 430 Interpretive Statements SINUS RHYTHM ARM LEADS REVERSED [INVERTED P AND QRS IN I] Compared to ECG 10/02/2023 21:59:55 T-wave abnormality no longer present Possible ischemia no longer present Electronically Signed On 10-03-2023 12:28:13 CIGARETTE EXAMINER by Etienne Garcia M.D. [email or web address]
[2023-10-03 07:25] LABS: Troponin 5 6HR 190.1 ng/L (0-10); Troponin 5 6HR Delta 64.1 ng/L (0-12)
--- NOTE | 2023-10-03 07:56 | P.CONIM_ITS ---
Providers/Reason For Consult 2 Consulting Physician/Specialty*: Cardiovascular medicine Reason for Consult*: Chest pain, elevated troponin Requesting Physician: Hospitalist Attending Physician: Jennifer Garcia MD Primary Care Provider: Ray Maria DO History of Present Illness History of Present Illness Deedee Centeno is a 77 year old female who was admitted overnight with chest discomfort and has an elevated troponin. She is a terrible historian. She thinks she may have began having chest pain 2 days ago when the furnace in her house when out and she could not get anyone to come and fix it. She then had broken pipes and icu manager also would not come out. She was frustrated and afraid and had chest pain from Friday morning all the way until last night some 36 hours. She came into the emergency room last night around midnight. She had some minor ST segment depression on her EKG. In the ER she was given aspirin, Lovenox 90 mg, Plavix 300 mg, Zofran and Dilaudid. She was admitted by the hospitalist and currently is on Lipitor, aspirin, Rythmol, nitroglycerin drip, Lovenox 90 mg every 12 hours. Her Eliquis has been held. I asked her specifically to her 3 different times when she last took her Eliquis and she says I cannot remember . She thinks she may not have been taking it for several days. Her EKGs reveal sinus rhythm with diffuse ST-T wave depression and T wave inversion. Her white blood cell count is 11.5. Her creatinine is 1.2. First troponin 126, second 201, third 190. Her BNP was 1192. She sees Dr. Harris in the clinic. Her last visit was in April of last year when she was stable. She had apparently had an angiogram in 2016 which was normal. Her other diagnoses include pulmonary hypertension, atrial fibrillation, hypertension, nonischemic cardiomyopathy, anxiety, previous tobacco abuse, chronic shortness of breath, chronic kidney disease and chronic factor Xa use. Review of Systems 2 Narrative: Review of systems is inadequate as she basically says yes to every question. Medications/Allergies Home Medications Medication Instructions Recorded Confirmed Last Taken Type albuterol sulfate 90 mcg/actuation 2 puff inhalation Q6H PRN 11/23/19 10/03/23 Unknown History aerosol inhaler (Ventolin HFA) Shortness Of Breath furosemide 40 mg tablet 40 mg PO DAILY 03/22/20 10/03/23 10/02/23 09:00 History potassium chloride 10 mEq 10 meq PO DAILY 03/22/20 10/03/23 10/02/23 09:00 History tablet,extended release losartan 50 mg tablet 50 mg PO DAILY #90 tabs 04/30/23 10/03/23 10/02/23 09:00 Rx apixaban 5 mg tablet (Eliquis) 5 mg PO BID #180 tabs 05/15/23 10/03/23 10/01/23 21:00 Rx Acapella #1 ea 09/01/23 10/03/23 Unknown Rx fluticasone 500 mcg-salmeterol 50 1 inh inhalation Q12H #60 ea 09/01/23 10/03/23 10/02/23 09:00 Rx mcg/dose blistr powdr for inhalation (Advair Diskus) guaifenesin 100 mg/5 mL oral 200 mg (10 mL) PO Q12H PRN cough 09/01/23 10/03/23 Unknown Rx liquid (Wal-Tussin) #473 mL propafenone 150 mg tablet 300 mg PO Q8H 10/02/23 10/03/23 10/02/23 09:00 History Allergies Allergy/AdvReac Type Severity Reaction Status Date / Time iodine Allergy Unknown unknown Verified 10/02/23 14:16 morphine Allergy Unknown unknown Verified 10/02/23 14:16 rosuvastatin [From Crestor] Allergy Unknown Unknown Verified 10/02/23 14:16 shrimp Allergy Unknown unknown Verified 10/02/23 14:16 Current Medications Generic Name Dose Route Start Last Admin Trade Name Freq PRN Reason Stop Dose Admin Atorvastatin Calcium 40 mg 10/03/23 00:11 10/03/23 01:09 Atorvastatin 40 Mg Tablet PO Not Given BEDTIME LORRAINE Sodium Chloride 1,000 mls @ 50 mls/hr 10/03/23 00:15 10/03/23 00:49 Sodium Chloride 0.9% IV 50 mls/hr .Q20H LORRAINE Administration Metoclopramide HCl 5 mg 10/03/23 00:11 10/03/23 00:48 Metoclopramide 5 Mg/Ml Sdv 2 Ml IVP 5 mg Q6H PRN Administration NAUSEA AND VOMITING Ondansetron HCl 4 mg 10/03/23 00:11 10/03/23 01:39 Ondansetron 2 Mg/Ml Sdv 2 Ml IVP 4 mg Q6H PRN Administration vomiting, or N/V if npo Pantoprazole Sodium 40 mg 10/03/23 00:15 10/03/23 00:48 Pantoprazole 40 Mg Sdv IVP 40 mg Q24H LORRAINE Administration Propafenone HCl 300 mg 10/03/23 00:15 10/03/23 00:45 Propafenone 150 Mg Tablet PO Not Given Q8H LORRAINE PFSH Acute 2 PFSH: Medical History (Updated 10/03/23 @ 08:02 by Santos Arias MD) Anticoagulation adequate with anticoagulant therapy Pulmonary hypertension Atypical chest pain The EKG from 11/23/2019 showed sinus rhythm with short [place] interval. Some nonspecific T wave changes. Low QRS voltage in the precordial leads. GERD (gastroesophageal reflux disease) Atrial fibrillation Hypertension Cardiomyopathy Radiculopathy Anxiety disorder Surgical History Hx of cholecystectomy H/O: hysterectomy History of ear surgery H/O breast biopsy Family History Mother CAD (coronary artery disease) Grandmother CAD (coronary artery disease) Brother CAD (coronary artery disease) Diabetes Sister Stroke Cancer Denies family history of Clotting disorder Dementia Chronic kidney disease (CKD) Suicide Anesthesia complication Bleeding disorder Lung disease Social History Smoking and tobacco/nicotine status: former use of tobacco/nicotine Quit status (tobacco/nicotine): has quit using Year quit tobacco: 1982 Former quit date comment: 1ppd x 15 years Alcohol intake: never Substance/Drug Use: never Vitals/I&O/Wt Last Vital Signs Temp 98.2 F 10/03/23 04:00 Pulse 59 L 10/03/23 06:00 Resp 16 10/03/23 04:00 BP 100/48 10/03/23 04:00 Pulse Ox 96 10/03/23 04:00 O2 Del Method Room Air 10/03/23 04:00 10/02/23 10/03/23 10/03/23 22:59 06:59 14:59 Intake Total 1120 / 1120 Output Total 200 / 200 Balance 920 / 920 Weight last 48 hrs Weight 169 lb 6.4 oz Weight 202 lb 4.8 oz Weight 200 lb Physical Exam 2 Narrative: GENERAL: In general she looks and feels well HEENT: Exam within normal limits. NECK: Supple without jugular vein distention. The carotid upstroke is normal without bruits. BACK: Exam normal. LUNGS: Clear. HEART: Regular rate and rhythm. ABDOMEN: Benign without organomegaly or tenderness. EXTREMITIES: No edema. NEUROLOGIC: Exam normal. SKIN: Unremarkable. Data 10/02/23 22:08 10/02/23 22:08 A&P Assessment and plan (1) Cardiomyopathy: Qualifiers: Cardiomyopathy type: other Qualified Code(s): I42.8 - Other cardiomyopathies (2) Hypertension: Qualifiers: Hypertension type: essential hypertension Qualified Code(s): I10 - Essential (primary) hypertension (3) Atrial fibrillation: Qualifiers: Atrial fibrillation type: paroxysmal Qualified Code(s): I48.0 - Paroxysmal atrial fibrillation (4) Elevated troponin: (5) Exertional dyspnea: (6) Non-ST elevation CT (NSTEMI): (7) Pulmonary hypertension: (8) Chronic kidney disease: (9) Anticoagulation adequate with anticoagulant therapy: Plan She would be best served with coronary angiography. We will hold the Lovenox this morning. She may eat breakfast. I believe the Eliquis was given long enough ago that it is not a concern. We will minimize the dye due to the chronic kidney disease. I did the best I could to explain this to her however she does not seem to grasp all of this. I reminded her of the angiogram she had in 2016 and she seems to remember this. We discussed it being a similar procedure to what she had previously. She is in agreement. We will proceed early this afternoon. Consult Attestations 2 Medical Necessity Statement: Hospitalization for management of non-ST segment elevation CT and Moderate Time for a total of 35 minutes, includes reviewing past or interval history, examining/interviewing patient, placing orders, counseling patient/family/other support, updating patient/family/other support, discussing plan of care with staff, communicating with other healthcare providers, documenting encounter and coordinating care Diagnoses Other cardiomyopathy I42.8 Cardiomyopathy type: other Essential hypertension I10 Hypertension type: essential hypertension Paroxysmal atrial fibrillation I48.0 Atrial fibrillation type: paroxysmal Elevated troponin R77.8 Exertional dyspnea R06.00 Non-ST elevation CT (NSTEMI) I21.4 Pulmonary hypertension I27.20 Chronic kidney disease N18.9 Anticoagulation adequate with anticoagulant therapy Z79.01
[2023-10-03] MEDS: diphenhydrAMINE 50 mg Capsule PO (09:08)
[2023-10-03] MEDS: aspirin 81 mg EC Tablet PO (09:08)
[2023-10-03] MEDS: methylPREDNISolone sod succ 125 mg/2 mL INJ IVP (09:22)
--- NOTE | 2023-10-03 10:02 | PC.CHAP ---
Pastoral Care Encounter/Spiritual Assessment Type of Contact [] Declined business services intern visit [] Patient/Family/Request visit [] Outpatient visit [] Follow-up visit [] Physician referral [] Code/Alert [] Routine visit [] Staff referral [] Actively dying [] Patient sleeping [] Family support [] [] Out of room [] Palliative care [] [x] Receiving care in room [] Pre-surgical visit [] Trauma [] Long length of stay [] ICU visit [] Other: Relational/Emotional Strength [] Patient feels connected with others/family/visitors/staff [] Distress [] Loneliness/isolation [] Abandonment Spirituality of Patient [] Person of Sejal [] Attends Protestant of their Sejal [] Believes in Prayer [] Reads Bible or Nondenominational materials [] There are Spiritual issues to be addressed 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/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 Interventions [] Prayer [] Active listening [] Non-anxious presence [] Spiritual/emotional support [] Crisis/trauma care [] Spiritual counseling [] Bereavement support [] Provided bereavement packet [] Provided Bible/devotional materials [] Provided toy/stuffed animal, coloring book to patient or family member [] Provided Communion [] Anointing/Nemo [] Salvation [] Completed spiritual assessment [] Other: Impact on Illness or Injury [] Angry [] Fearful [] Anxious [] Often cries [] Exhaustion [] Unable to work [] Unable to attend caodaism [] Unable to walk/stand [] Unable to read [] Unable to drive [] Unable to eat/drink [] Unable to sleep [] Unable to be with family [] Patient intubated [] Other: Summary Time spent with patient
[2023-10-03] MEDS: albuterol 2.5 mg/3 mL Neb INHALATION (10:26)
--- NOTE | 2023-10-03 11:26 | W.PM.EVENTAC ---
Event Note Event Note: Plan for angiogram today Currently chest pain-free She is n.p.o. Patient from home, has multiple family members to take care of her at home Might be able to go home over the weekend
--- NOTE | 2023-10-03 12:20 | XACV_ITS ---
Exam Room: [facility] Ht: 170 cm Wt: 77 kg BSA: 1.92 m2 Gender: Female : 1945 Any Known Allergies: Morphine Exam Priority: Routine Procedure(s): Procedure Description: Diagnostic procedure Procedure Description: Coronary Angiography Juana MARROQUIN; Diagnostic Cath Status: Urgent Diagnostic Findings * Chest pain for 2 days with elevated troponin. Minor EKG abnormalities. Angiography reveals right coronary artery dominance. The left main is normal and quite long. It bifurcates into the LAD and circumflex. The circumflex is normal with 2 obtuse marginal branches. The LAD is normal with 1 diagonal branch. The right coronary artery is the dominant vessel and ends distally as a small posterior descending artery and 2 small posterior left ventricular branches. The right coronary artery is normal. No left ventriculogram was done due to renal insufficiency.. Conclusions 1. Normal coronary arteries. Recommendations * None. Interventional RX Recommendation: none Diagnostic RX Recommendation: none Pressures Phase:Rest AO : 106 / 46 ( 70 ) @ 1:08:00 PM 132 / 81 ( 105 ) @ 1:11:00 PM Clinical Evaluation EBL: 5mL-10mL Procedural Details Procedure Consent Obtained. Current Diagnosis : Chest Pain. Pre-Procedure Time Out. Identified patient by full name and date of as verbalized by the patient/guarantor. Does the consent match the physician's order: Yes. Accurate & Complete Informed Consent: Yes. Inpatient/Outpatient History & Physical on Chart: Yes. If H&P is completed, is and addenduem needed: No; If yes, is the addendum complete: N/A. Visualize and Verify Site with Patient/Guarantor: N/A. Relevant Radiology Images available: Yes. Pre-op teaching completed and patient verbalized understanding. The risks, benefits, and alternatives of sedation and/or procedure were discussed by physician. The patient agrees to continue. Procedure started. [facility] Clinical Fraility Score: 5: Mildly Frail. Shoe Dresser Indications: Worsening Angina. Chest Pain Symptom Assessment: Atypical Angina. Correct patient, site and procedure confirmed by cath team. Current diagnosis: Chest Pain. PERRLA. 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 Lungs clear x 5 lobes. IV Site on Arrival: 18 gauge in the left anticubital. IV Fluids: 0.9% NaCl at KVO. 0 mL infused prior to labor custodian. Oxygen started at 2liters/min via nasal canula. right groin was prepped with chloroprep then draped in the usual sterile fashion. right radial was prepped with chloroprep then draped in the usual sterile fashion. Baseline sample Acquired. HR: 67 BPM. Physician notified. Physician arrived. Physician scrubbed in. Immediate Pre-Procedure Time Out. Correct Patient: Yes; Correct Procedure: Yes; Correct Site: Yes; Correct Patient Position: Yes; Correct Supplies: Yes; Dried Flammable Prep: Yes; Blood Products Available: N/A;. Lidocaine 1% infiltrated to the right radial. Unable to obtain radial access. MD attempting to gain access in the Femoral artery. Lidocaine 1% infiltrated to the right groin. Arterial access obtained. A 5 palauan JL4 catheter in over wire. Multiple views taken of left coronary artery. Catheter removed over the standard wire. A 5 palauan JR4 catheter in over wire. Multiple views taken of right coronary artery. Catheter removed over the standard wire. Physician scrubbed out. A Manual Compression was successful obtaining hemostatsis at the Right Femoral artery insertion site. Sheath(s) removed and manual pressure held until hemostasis was achieved. Sterile 4x4 and Op-site applied to the puncture site. No oozing or hematoma noted. Post sheath removal instructions were given and the patient verbalized understanding. Post Procedure: Pulses reassessed and unchanged. PERRLA. 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 No VTE prophylaxis required. Medication's Wasted: Nitro = 50 mg. Medication's Wasted: Heparin = 4000 units. Medication's Wasted: Other = Versed 1 mg. Total IV fluids: 56 mL. Post-op diagnosis: Normal Coronaries. Complications: None. Estimated blood loss: 5mL-10mL. Responsiveness - Normal response to verbal stimuli; alert and oriented, PERRLA. Airway - Unaffected, no intervention required; spontaneous ventilation. Circulation: W/N/L, pulses unchanged. Nausea/Vomiting: No. Procedure completed. Vital chart was stopped. Patient transferred by bed to [facility] floor. Access Site Site: Right Femoral artery Sheath Size: 6 Fr Hemostasis Method: Manual Compression Hemostasis Success: Successful Procedure Medications Start: 12:38 PM Stop: 12:38 PM Medication: Fentanyl Amount: 25 mcg Route: I.V. Start: 12:41 PM Stop: 12:41 PM Medication: Fentanyl Amount: 25 mcg Route: I.V. Start: 12:45 PM Stop: 12:45 PM Medication: Versed Amount: 1 mg Route: I.V. Start: 12:54 PM Stop: 12:54 PM Medication: Versed 1 mg and Fentanyl 25 mcg Start: 1:03 PM Stop: 1:03 PM Medication: Versed 1 mg and Fentanyl 25 mcg I, the attending physician, have reviewed and verified all procedure medications. Yes, all medications given per verbal order History/Risk Factors Hypertension: Yes Dyslipidemia: No Peripheral Arterial Disease (PAD): No Myocardial Infarction (WA): No Obesity: No Renal Disease: No Tobacco Use: Former Prior Interventions PCI: No CABG: No Valve Surgery: No Report Signatures Finalized by Dr. Santos Arias MD on 10/03/2023 01:39 PM
--- NOTE | 2023-10-03 13:01 | PC.NURSE ---
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
[2023-10-03] MEDS: sodium chloride 0.9% 1,000 ML 100 ML IV ×2 (14:00→23:24)
[2023-10-03] MEDS: propafenone 150 mg Tablet 300 MG PO ×2 (17:36→23:24)
[2023-10-04 04:00] VITALS: BP 124/67; PULSE 73; RESP 23; TEMP 36.5; O2SAT 97
[2023-10-04 06:00] VITALS: PULSE 68
[2023-10-04 07:21] VITALS: BP 130/60; PULSE 65; RESP 18; TEMP 36.8; O2SAT 96
--- NOTE | 2023-10-04 07:42 | P.PN_ITS ---
Subjective 2 Subjective: Deedee's angiogram yesterday revealed normal coronary arteries. I did not perform left ventriculography because of her creatinine. No labs yet this morning. She has a headache this morning and would like some Aleve. No complications at the angiogram site. Vitals/I&O/Wt Last Vital Signs Temp 98.2 F 10/04/23 07:21 Pulse 65 10/04/23 07:21 Resp 18 10/04/23 07:21 BP 130/60 10/04/23 07:21 Pulse Ox 96 10/04/23 07:21 O2 Del Method Room Air 10/04/23 07:21 10/03/23 10/04/23 10/04/23 22:59 06:59 14:59 Intake Total 1236.000 / 1472.000 940 / 2412.000 Balance 1236.000 / 1472.000 940 / 2412.000 Weight last 48 hrs Weight 213 lb Weight 169 lb 6.4 oz Weight 202 lb 4.8 oz Weight 200 lb Physical Exam 2 Narrative: GENERAL: In general she looks and feels well HEENT: Exam within normal limits. NECK: Supple without jugular vein distention. The carotid upstroke is normal without bruits. BACK: Exam normal. LUNGS: Clear. HEART: Regular rate and rhythm. ABDOMEN: Benign without organomegaly or tenderness. EXTREMITIES: No edema. Right groin catheterization site is flat, dry without hematoma or bleeding. NEUROLOGIC: Exam normal. SKIN: Unremarkable. Data 10/02/23 22:08 10/02/23 22:08 A&P Assessment and plan (1) Cardiomyopathy: Qualifiers: Cardiomyopathy type: other Qualified Code(s): I42.8 - Other cardiomyopathies (2) Hypertension: Qualifiers: Hypertension type: essential hypertension Qualified Code(s): I10 - Essential (primary) hypertension (3) Atrial fibrillation: Qualifiers: Atrial fibrillation type: paroxysmal Qualified Code(s): I48.0 - Paroxysmal atrial fibrillation (4) Elevated troponin: (5) Exertional dyspnea: (6) Anticoagulation adequate with anticoagulant therapy: Plan She may be discharged today. As needed cardiology follow-up. I ordered a CBC and chemistry panel this morning. I also ordered some naproxen for her headache. I spoke to the patient and her daughter in the room this morning. She should go home on the same medication she was admitted on. Those include Eliquis. Attestations 2 Medical Necessity Statement*: Able to be discharged safely today. and Moderate Time for a total of 30 minutes, includes reviewing past or interval history, examining/interviewing patient, placing orders, counseling patient/family/other support, updating patient/family/other support, discussing plan of care with staff and documenting encounter Diagnoses Other cardiomyopathy I42.8 Cardiomyopathy type: other Essential hypertension I10 Hypertension type: essential hypertension Paroxysmal atrial fibrillation I48.0 Atrial fibrillation type: paroxysmal Elevated troponin R77.8 Exertional dyspnea R06.00 Anticoagulation adequate with anticoagulant therapy Z79.01
[2023-10-04] MEDS: naproxen 500 mg Tablet 250 MG PO (08:31)
[2023-10-04] MEDS: propafenone 150 mg Tablet 300 MG PO (08:31)
[2023-10-04] MEDS: aspirin 81 mg EC Tablet PO (08:32)
[2023-10-04 09:18] VITALS: PULSE 65; RESP 18; O2SAT 95
[2023-10-04] MEDS: albuterol 2.5 mg/3 mL Neb INHALATION (09:18)
[2023-10-04 10:10] LABS: Basophils % 0.2 %; Hematocrit 35.7 % (36-47); Lymphocytes % 19.1 %; Mean Corpuscular HGB Conc 32.5 g/dL (30-55); Mean Corpuscular Hemoglobin 31.4 pg (27-33); Mean Corpuscular Volume 96.5 fl (85-98); Mean Platelet Volume 10.5 fL (7.4-10.4); Monocytes # 0.5 10^3/uL (0.2-0.9); Monocytes % 4.9 %; Neutrophils # 7.79 10^3/uL (1.8-7.7); Neutrophils % 75.4 %; Nucleated Red Blood Cells % 0 %; Platelet Count 320 10^3/cmm (157-399); Red Cell Distribution Width 15.2 % (12.1-15.1); White Blood Count 10.34 10^3/uL (3.29-11.43)
[2023-10-04 10:32] LABS: Anion Gap 12.6 (5-19); Blood Urea Nitrogen 20 mg/dL (8-23); Calcium 8.4 mg/dL (8.5-10.5); Carbon Dioxide 23 mmol/L (22-29); Chloride 108 mmol/L (98-107); Glucose 114 mg/dL (65-115); Osmolality Calculated 293 mOsm/kg (285-295); Potassium 3.6 mmol/L (3.5-5.1); Sodium 140 mmol/L (136-145)
[2023-10-04 11:25] VITALS: BP 120/56; PULSE 59; RESP 16; TEMP 36.7; O2SAT 95
--- NOTE | 2023-10-04 11:38 | P.DS_ITS ---
Discharge Providers Date of Admission: 10/02/23 23:38 Date of Discharge: October 04, 2023 Attending Provider at Admission: Moi Leiva MD Attending Provider at Discharge: Jennifer Garcia MD Primary Care Provider: Ray Maria DO Diagnoses at Discharge Discharge Diagnosis (1) Cardiomyopathy: Status: Acute Qualifiers: Cardiomyopathy type: other Qualified Code(s): I42.8 - Other cardiomyopathies (2) Hypertension: Status: Acute Qualifiers: Hypertension type: essential hypertension Qualified Code(s): I10 - Essential (primary) hypertension (3) Atrial fibrillation: Status: Acute Qualifiers: Atrial fibrillation type: paroxysmal Qualified Code(s): I48.0 - Paroxysmal atrial fibrillation (4) Elevated troponin: Status: Acute (5) Exertional dyspnea: Status: Acute (6) Anticoagulation adequate with anticoagulant therapy: Status: Acute Reason for Visit Reason for Visit: cp Hospital Course Hospital Course 77-year-old female who was admitted for management of non-STEMI, patient went for coronary angiogram with Dr. Arias, nonobstructive coronary disease, patient is hemodynamically stable no active chest pain, she will return home her EF is 60 to 65% without wall motion abnormality, she has moderate pulmonary hypertension, she remained chest pain-free throughout hospitalization. 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 echo complete* [id number] Routine Ultrasound 10/03/23 00:13 Completed Radiology Impressions Chest X-Ray 10/02/23 21:54 IMPRESSION: No acute findings. Laboratory Results WBC 10.34 10^3/uL (3.29-11.43) 10/04/23 08:51 RBC 3.70 10^6/uL (3.85-5.65) L 10/04/23 08:51 Hgb 11.60 g/dL (11.27-16.99) 10/04/23 08:51 Hct 35.7 % (36-47) L 10/04/23 08:51 MCV 96.5 fl (85-98) 10/04/23 08:51 MCH 31.4 pg (27-33) 10/04/23 08:51 MCHC 32.5 g/dL (30-55) 10/04/23 08:51 RDW 15.2 % (12.1-15.1) H 10/04/23 08:51 Plt Count 320 10^3/cmm (157-399) 10/04/23 08:51 MPV 10.5 fL (7.4-10.4) H 10/04/23 08:51 Neut % (Auto) 75.4 % 10/04/23 08:51 Lymph % (Auto) 19.1 % 10/04/23 08:51 Trego % (Auto) 4.9 % 10/04/23 08:51 Eos % (Auto) 0.0 % 10/04/23 08:51 Baso % (Auto) 0.2 % 10/04/23 08:51 Neut # (Auto) 7.79 10^3/uL (1.8-7.7) H 10/04/23 08:51 Lymph # (Auto) 2.0 10^3/uL (0.8-4.8) 10/04/23 08:51 Trego # (Auto) 0.5 10^3/uL (0.2-0.9) 10/04/23 08:51 Eos # (Auto) 0.0 10^3/uL (0.0-0.8) 10/04/23 08:51 Baso # (Auto) 0.0 10^3/uL (0.0-0.1) 10/04/23 08:51 Nucleated RBC % (auto) 0 % 10/04/23 08:51 Nucleated RBCs # 0.0 /100WBC 10/04/23 08:51 PT 14.00 SECONDS (12.1-14.9) 10/02/23 22:08 INR 1.05 (0.8-1.2) 10/02/23 22:08 Sodium 140 mmol/L (136-145) 10/04/23 08:51 Potassium 3.6 mmol/L (3.5-5.1) 10/04/23 08:51 Chloride 108 mmol/L (98-107) H 10/04/23 08:51 Carbon Dioxide 23 mmol/L (22-29) 10/04/23 08:51 Anion Gap 12.6 (5-19) 10/04/23 08:51 BUN 20 mg/dL (8-23) 10/04/23 08:51 Creatinine 0.9 mg/dL (0.5-0.9) 10/04/23 08:51 GFR Calculation Not Reportable 10/04/23 08:51 Glucose 114 mg/dL (65-115) 10/04/23 08:51 Calculated Osmolality 293 mOsm/kg (285-295) 10/04/23 08:51 Calcium 8.4 mg/dL (8.5-10.5) L 10/04/23 08:51 Total Bilirubin 0.4 mg/dL (0.15-1.2) 10/02/23 22:08 AST 23 U/L (0-32) 10/02/23 22:08 ALT 14 U/L (0-33) 10/02/23 22:08 Alkaline Phosphatase 119 U/L (35-105) H 10/02/23 22:08 Troponin T Baseline 126 ng/L (0-10) H* 10/02/23 22:08 Troponin T 120 Minute 201.5 ng/L (0-10) H 10/02/23 01:05 Delta Troponin T 75.5 ABS# (0-10) H* 10/02/23 01:05 Troponin T Hi Sens 6Hr 190.1 ng/L (0-10) H 10/03/23 06:33 Troponin T Hi Sens 6Hr Delta 64.1 ng/L (0-12) H* 10/03/23 06:33 NT-Pro-B Natriuret Pep 1192 pg/mL (0-450) H 10/02/23 22:08 Total Protein 7.2 g/dL (6.6-8.7) 10/02/23 22:08 Albumin 4.2 g/dL (3.5-5.2) 10/02/23 22:08 Globulin 3.0 g/dL (1.3-4.6) 10/02/23 22:08 Triglycerides 113 mg/dL (0-150) 10/03/23 01:05 Cholesterol 176 mg/dL (0-200) 10/03/23 01:05 LDL Cholesterol, Calc 123 mg/dL (50-129) 10/03/23 01:05 HDL Cholesterol 30 mg/dL (60-100) L 10/03/23 01:05 LDL/HDL Ratio 4.10 RATIO (0.00-3.22) H 10/03/23 01:05 Cholesterol/HDL Ratio 5.87 mg/dL (0.0-4.40) H 10/03/23 01:05 Lipase 29 U/L (13-60) 10/02/23 22:08 TSH 7.16 uIU/mL (0.27-4.20) H 10/03/23 01:05 Vitals Last Vital Signs Temp 98.0 F 10/04/23 11:25 Pulse 59 L 10/04/23 11:25 Resp 16 10/04/23 11:25 BP 120/56 10/04/23 11:25 Pulse Ox 95 10/04/23 11:25 O2 Del Method Room Air 10/04/23 11:25 Discharge Plan Discharge Patient Disposition: Home Condition: Stable Prescriptions: Continued albuterol sulfate [Ventolin HFA] 90 mcg/actuation HFA aerosol inhaler 2 puff INHALATION Q6H PRN (Reason: Shortness Of Breath) potassium chloride 10 mEq tablet extended release 10 meq PO DAILY furosemide 40 mg tablet 40 mg PO DAILY guaifenesin [Wal-Tussin] 100 mg/5 mL liquid 200 mg PO Q12H PRN (Reason: cough) Qty: 473 2RF fluticasone propion-salmeterol [Advair Diskus] 500-50 mcg/dose blister with device 1 inh inhalation Q12H Qty: 60 4RF (DME) Acapella See Rx Instructions .Route .MEDSUPPLY Qty: 1 0RF Rx Instructions: As directed losartan 50 mg tablet 50 mg PO DAILY Qty: 90 2RF Eliquis 5 mg tablet 5 mg PO BID Qty: 180 3RF propafenone 150 mg tablet 300 mg PO Q8H Discharge Orders: Discharge Order (Routine); Ordered 10/04/23 Ordered By: Jennifer Garcia Referrals: Ray Maria DO [Primary Care Provider] - Discharge Diet: Cardiac Patient Instructions: Opioid Safety Discharge Attestations Time Spent in Discharge Care*: greater than 30 min Quality Metrics Clinical Quality Measures [ No reported AMI, CVA or VTE this stay] Coding Level of Care Code Acute Code for Chg Fwd Diagnoses Other cardiomyopathy I42.8 Cardiomyopathy type: other Essential hypertension I10 Hypertension type: essential hypertension Paroxysmal atrial fibrillation I48.0 Atrial fibrillation type: paroxysmal Elevated troponin R77.8 Exertional dyspnea R06.00 Anticoagulation adequate with anticoagulant therapy Z79.01
[2023-10-04 13:23] VITALS: PULSE 65
--- NOTE | 2023-10-04 13:51 | PC.NURSE ---
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 she verbalizes understanding.
== END 2023-10-04 13:27 | disposition home or self-care (01) ==
LOC: ER 23:34 → CSU 23:58
PROVIDERS: Internal Medicine Cardiovascular Disease; Admitting Provider Family Medicine; Emergency Provider Emergency Medicine; PCP Internal Medicine; Visit Provider Internal Medicine
DX: I42.8 Other cardiomyopathies (principal); I48.0 Paroxysmal atrial fibrillation; R77.8 Other specified abnormalities of plasma proteins; R06.00 Dyspnea, unspecified; Z79.01 Long term (current) use of anticoagulants; Z87.891 Personal history of nicotine dependence; I27.20 Pulmonary hypertension, unspecified; F41.9 Anxiety disorder, unspecified; I12.9 Hypertensive chronic kidney disease with stage 1 through stage 4 chronic kidney disease, or unspecified chronic kidney disease; N18.9 Chronic kidney disease, unspecified; I25.2 Old myocardial infarction
CPT/HCPCS: 36415; 71045; 72110; 80048; 80053; 80061; 83690; 83880; 84443; 84484; 85025; 85610; 93005; 93306; 93454; 94640; 94664; 96372; 96374; 96375; 99152; 99153; 99204; 99285; C1769; C1887; C1894; C9113; G0378; J1170; J1644; J1650; J2250; J2405; J2765; J2930; J7030; J7613; Q0163; Q9967

== ENCOUNTER → 2023-11-20 13:50 | Outpatient (BNVA) | payer MEDICARE, SELFPAY | PROVIDERS: PCP Internal Medicine; Visit Provider Internal Medicine Cardiovascular Disease | DX: I48.0 Paroxysmal atrial fibrillation (principal); Z79.01 Long term (current) use of anticoagulants; I13.0 Hypertensive heart and chronic kidney disease with heart failure and stage 1 through stage 4 chronic kidney disease, or unspecified chronic kidney disease; I50.32 Chronic diastolic (congestive) heart failure; N18.9 Chronic kidney disease, unspecified; Z79.899 Other long term (current) drug therapy; R06.00 Dyspnea, unspecified; Z87.891 Personal history of nicotine dependence | CPT/HCPCS: 99214 ==

== ENCOUNTER → 2024-04-28 15:54 | Outpatient (BNVA) | payer MEDICARE, SELFPAY | PROVIDERS: PCP Internal Medicine; Visit Provider Internal Medicine Critical Care Medicine | DX: I48.0 Paroxysmal atrial fibrillation; I42.8 Other cardiomyopathies; I50.32 Chronic diastolic (congestive) heart failure; J41.1 Mucopurulent chronic bronchitis; K21.9 Gastro-esophageal reflux disease without esophagitis; E66.3 Overweight; Z68.28 Body mass index [BMI] 28.0-28.9, adult; Z71.6 Tobacco abuse counseling; Z71.89 Other specified counseling; Z71.82 Exercise counseling; R06.00 Dyspnea, unspecified | CPT/HCPCS: 99214 ==

== ENCOUNTER → 2024-06-01 10:11 | Outpatient (BNVA) | payer MEDICARE, SELFPAY | PROVIDERS: PCP Internal Medicine; Visit Provider Nurse Practitioner Family | DX: I10 Essential (primary) hypertension (principal); I48.0 Paroxysmal atrial fibrillation | CPT/HCPCS: 99214 ==

== ENCOUNTER → 2024-08-18 15:23 | Outpatient (BNVA) | payer MEDICARE, SELFPAY | PROVIDERS: PCP Internal Medicine; Visit Provider Nurse Practitioner Family | DX: L57.8 Other skin changes due to chronic exposure to nonionizing radiation (principal); L81.4 Other melanin hyperpigmentation; L82.0 Inflamed seborrheic keratosis; L29.89 Other pruritus; L53.8 Other specified erythematous conditions; L91.8 Other hypertrophic disorders of the skin | CPT/HCPCS: 17110; 99213 ==

== ENCOUNTER → 2024-12-01 10:35 | Outpatient (BNVA) | payer MEDICARE, SELFPAY | PROVIDERS: PCP Internal Medicine; Visit Provider Internal Medicine Cardiovascular Disease | DX: I50.32 Chronic diastolic (congestive) heart failure (principal); Z79.899 Other long term (current) drug therapy; I10 Essential (primary) hypertension; I48.0 Paroxysmal atrial fibrillation | CPT/HCPCS: 99214 ==

== ENCOUNTER 2025-02-11 15:10 | Outpatient (CLI) | payer MEDICARE, SELFPAY ==
--- NOTE | 2025-02-11 15:19 | XR_ITS ---
WS: [id number] SCREENING DEXA SCAN [employer] CLINICAL INFORMATION: POSTMENOPAUSAL COMPARISON: 2019 FINDINGS: The L1-L4 bone mineral density measures 1.144 g/cm2. This corresponds to a T score score of -0.3 and Z score of 0.8. Left femoral neck bone mineral density measures 0.995 g/cm2. This corresponds to a T score of -0.1 and Z score of 1.3. Right femoral neck bone mineral density measures 0.971 g/cm2. This corresponds to a T score -0.3of and Z score of 1.1. Mean femoral neck bone mineral density measures 0.983 g/cm2. This corresponds to a T score of -0.2 and Z score of 1.2. XR/XR DEXA axial skeleton* [id number] IMPRESSION: Normal bone mineralization. Patient's FRAX calculated 10 year probability for major osteoporotic fracture i s 10.3% and osteoporotic hip fracture is 1.7%. Bone mineral density lumbar spine increased 5.3% Bone mineral density femoral necks decreased -3.6%
== END 2025-02-11 15:11 | disposition home or self-care (01) ==
LOC: RAD 15:14
PROVIDERS: PCP Family Medicine; Visit Provider Physician Assistant
DX: Z78.0 Asymptomatic menopausal state (principal)
CPT/HCPCS: 77080

== ENCOUNTER → 2025-07-19 11:26 | Outpatient (BNVA) | payer MEDICARE, SELFPAY | PROVIDERS: PCP Family Medicine; Visit Provider Internal Medicine Cardiovascular Disease | DX: I48.91 Unspecified atrial fibrillation (principal); Z79.01 Long term (current) use of anticoagulants; I11.0 Hypertensive heart disease with heart failure; I50.20 Unspecified systolic (congestive) heart failure; Z79.899 Other long term (current) drug therapy; Z87.891 Personal history of nicotine dependence; I25.2 Old myocardial infarction; R07.9 Chest pain, unspecified; R94.31 Abnormal electrocardiogram [ECG] [EKG] | CPT/HCPCS: 93005; 99214 ==

== ENCOUNTER → 2025-08-18 09:36 | Outpatient (BNVA) | payer MEDICARE, SELFPAY | PROVIDERS: PCP Family Medicine; Visit Provider Nurse Practitioner Family | DX: L57.8 Other skin changes due to chronic exposure to nonionizing radiation (principal); L81.4 Other melanin hyperpigmentation; L82.0 Inflamed seborrheic keratosis; Z78.9 Other specified health status; L91.8 Other hypertrophic disorders of the skin; L53.8 Other specified erythematous conditions; R20.8 Other disturbances of skin sensation; D48.5 Neoplasm of uncertain behavior of skin; D22.62 Melanocytic nevi of left upper limb, including shoulder; L57.0 Actinic keratosis | CPT/HCPCS: 11102; 17000; 17110; 99213 ==